=== PATIENT | male | born 1970 | race Caucasian/White ===

== ENCOUNTER 2016-12-06 05:08 | Emergency (ER) | payer MEDICARE, OTHER ==
[2016-12-06] MEDS ORDERED: ACETAMINOPHEN TAB 500 MG TAB PO STA (05:12)
[2016-12-06] MEDS ORDERED: IBUPROFEN 600 MG TAB PO STA (05:13)
--- NOTE | 2016-12-06 05:14 | ED ---
General Adult HPI - General Stated complaint: fever Time Seen by Provider: 12/06/16 05:08 Source: RN notes reviewed - History of Present Illness Initial comments: This is a 46-year-old male who presents emergency Department complaining of having a cough last couple of days and feeling a little bit lightheaded as of tonight. Patient states he feels extremely hot but he has not taken his temperature. Patient denies any sputum production. Patient states he was a little short of breath earlier but no longer. Patient denies chest pain or palpitations. Patient denies any abdominal pain patient denies nausea vomiting diarrhea. Patient denies any headache patient denies numbness weakness. Patient denies any near syncopal episodes though he does feel occasionally dizzy. Patient has not taken anything for his fever. Denies any smoking. - Related Data Home Medications Medication Instructions Recorded Confirmed OLANZapine [ZyPREXA] 20 mg PO DAILY 04/12/16 12/06/16 Paliperidone IM [Invega Sustenna] 156 mg IM DIRECTED 04/12/16 12/06/16 Previous Rx's Medication Instructions Recorded Oseltamivir [Tamiflu] 75 mg PO Q12HR #10 cap 12/06/16 Allergies Allergy/AdvReac Type Severity Reaction Status Date / Time yeast, dried Allergy Unknown Verified 12/06/16 05:18 Review of Systems ROS Statement: Those systems with pertinent positive or pertinent negative responses have been documented in the HPI. ROS Other: All systems not noted in ROS Statement are negative. Past Medical History Past Medical History: No Reported History History of Any Multi-Drug Resistant Organisms: None Reported Additional Past Surgical History / Comment(s): ORAL SURGERY Past Psychological History: Schizoaffective Disorder, Schizophrenia Smoking Status: Never smoker Past Alcohol Use History: None Reported Past Drug Use History: None Reported General Exam - General Exam Comments Initial Comments: GENERAL: Patient is well-developed and well-nourished. Patient is nontoxic and well- hydrated and is in mild distress. ENT: Neck is soft and supple. No significant lymphadenopathy is noted. Oropharynx is clear. Moist mucous membranes. Neck has full range of motion without eliciting any pain. EYES: The sclera were anicteric and conjunctiva were pink and moist. Extraocular movements were intact and pupils were equal round and reactive to light. Eyelids were unremarkable. PULMONARY: Unlabored respirations. Good breath sounds bilaterally. No audible rales rhonchi or wheezing was noted. CARDIOVASCULAR: There is a regular rate and rhythm without any murmurs gallops or rubs. ABDOMEN: Soft and nontender with normal bowel sounds. No palpable organomegaly was noted. There is no palpable pulsatile mass. SKIN: Skin is clear with no lesions or rashes and otherwise unremarkable. NEUROLOGIC: Patient is alert and oriented x3. Cranial nerves II through XII are grossly intact. Motor and sensory are also intact. Normal speech, volume and content. Symmetrical smile. MUSCULOSKELETAL: Normal extremities with adequate strength and full range of motion. No lower extremity swelling or edema. No calf tenderness. LYMPHATICS: No significant lymphadenopathy is noted PSYCHIATRIC: Normal psychiatric evaluation. Normal interpersonal interactions appears functionally intact in deals appropriately with others. No signs of depression. No signs of anxiety. Course Vital Signs 12/06/16 05:16 Temperature 101.6 F H Pulse Rate 108 H Respiratory 20 Rate Blood Pressure 114/63 O2 Sat by Pulse 98 Oximetry Medical Decision Making - Medical Decision Making Chest x-ray shows no acute abnormality. Patient is influenza B+. - Lab Data Lab Results 12/06/16 Range/Units 05:14 Influenza Type A RNA Not Detected (Not Detectd) Influenza Type B (PCR) Detected H (Not Detectd) Disposition Clinical Impression: Influenza Disposition: HOME SELF-CARE Instructions: Influenza (ED) Prescriptions: Oseltamivir [Tamiflu] 75 mg PO Q12HR #10 cap Referrals: Beni Fermin MD [Primary Care Provider] - 1-2 days Time of Disposition: 05:50
--- NOTE | 2016-12-06 05:44 | XR ---
EXAM: XR Chest, 2 Views. CLINICAL HISTORY: Difficulty breathing TECHNIQUE: Frontal and lateral views of the chest. COMPARISON: No relevant prior studies available. FINDINGS: Lungs: Unremarkable. No consolidation. Pleural space: Unremarkable. No pneumothorax. Heart: Unremarkable. No cardiomegaly. Mediastinum: Unremarkable. Bones/joints: Unremarkable. IMPRESSION: Normal chest x-rays.
[2016-12-06] MEDS ORDERED: OSELTAMIVIR 75 MG CAP PO STA (05:51)
[2016-12-06 06:02] VITALS: BP 116/80; PULSE 80; RESP 16; TEMP 97.9
== END 2016-12-06 06:00 | disposition home or self-care (01) ==
LOC: SUPCPDRO 05:08 → EC 05:08
DX: J11.1 Influenza due to unidentified influenza virus with other respiratory manifestations (principal); F25.9 Schizoaffective disorder, unspecified; Z79.899 Other long term (current) drug therapy; Z91.018 Allergy to other foods
CPT/HCPCS: 71020; 87502; 99284

== ENCOUNTER 2020-06-29 13:43 | Inpatient (IN) | payer MEDICARE, MEDICAID ==
--- NOTE | 2020-06-29 14:32 | ED ---
Psych HPI - General Source: patient, EMS Mode of arrival: EMS <Celi Dunn - Last Filed: 06/29/20 14:18> <Betsy Van - Last Filed: 07/05/20 12:14> - General Chief Complaint: Psychiatric Symptoms Stated Complaint: MENTAL HEALTH - History of Present Illness Initial Comments: 49-year-old male presenting today for chief complaint of brought in by EMS. Patient states he was just walking around going to place that he did not want to disclose with the police and EMS was called to bring him to the emergency Department patient states he has not been taking his medications because he states he feels the same on them and off them and doesn't see the point in t aking them. Patient states that he has no current complaints he feels fine and would like to go home remaining review of systems negative Patient is talking during history about evident how he states he can no insulin was [facility] he is referred himself as we and has bizamzamare thought s. (Celi Dunn) - Related Data Home Medications Medication Instructions Recorded Confirmed OLANZapine [ZyPREXA] 20 mg PO HS 04/12/16 06/29/20 Cholecalciferol [Vitamin D3 (25 5,000 unit PO DAILY 06/29/20 06/29/20 Mcg = 1000 Iu)] fluPHENAZine decanoate [Prolixin 25 mg IM Q14D 06/29/20 06/29/20 Decanoate] Allergies Allergy/AdvReac Type Severity Reaction Status Date / Time yeast, dried Allergy Unknown Verified 06/29/20 17:26 Review of Systems ROS Other: All systems not noted in ROS Statement are negative. <Celi Dunn - Last Filed: 06/29/20 14:18> ROS Other: All systems not noted in ROS Statement are negative. <Betsy Van - Last Filed: 07/05/20 12:14> ROS Statement: Those systems with pertinent positive or pertinent negative responses have been documented in the HPI. Past Medical History Past Medical History: No Reported History History of Any Multi-Drug Resistant Organisms: None Reported Past Surgical History: No Surgical Hx Reported Additional Past Surgical History / Comment(s): ORAL SURGERY Past Psychological History: Schizoaffective Disorder, Schizophrenia Smoking Status: Unknown if ever smoked Past Alcohol Use History: None Reported Past Drug Use History: None Reported <Celi Dunn - Last Filed: 06/29/20 14:18> General Exam Limitations: altered mental status <Celi Dunn - Last Filed: 06/29/20 14:18> - General Exam Comments Initial Comments: General: The patient is awake and alert, in no distress Eye: Pupils are equal, round and reactive to light, extra-ocular movements are intact. No nystagmus. There is normal conjunctiva bilaterally. No signs of icterus. Ears, nose, mouth and throat: There are moist mucous membranes and no oral lesions. Neck: The neck is supple, there is no tenderness or JVD. Cardiovascular: There is a regular rate and rhythm. No murmur, rub or gallop is appreciated. Respiratory: Lungs are clear to auscultation, respirations are non-labored, breath sounds are equal. No wheezes, stridor, rales, or rhonchi. Gastrointestinal: Soft, non-distended, non-tender abdomen without masses or o rganomegaly noted. There is no rebound or guarding present. Musculoskeletal: Normal ROM, no tenderness. Strength 5/5. Sensation intact. Radial pulses equal bilaterally 2+. Neurological: A&O x 3. CN II-XII intact, There are no obvious motor or sensory deficits. Coordination appears grossly intact. Speech is normal. Skin: Skin is warm and dry and no rashes or lesions are noted. Dirt on feet b/l Psychiatric: Cooperative (Celi Dunn) Course Vital Signs 06/29/20 06/29/20 06/29/20 13:47 13:52 14:52 Temperature 98.4 F Pulse Rate 122 H Respiratory 20 20 20 Rate Blood Pressure 135/91 O2 Sat by Pulse 97 Oximetry 06/29/20 06/29/20 15:52 16:00 Temperature Pulse Rate Respiratory 20 20 Rate Blood Pressure O2 Sat by Pulse Oximetry Medical Decision Making <Celi Dunn - Last Filed: 06/29/20 14:18> - Lab Data Result diagrams: 06/30/20 06:54 06/30/20 06:54 <Betsy Van - Last Filed: 07/05/20 12:14> - Medical Decision Making No complaiunts. non-complaint with medications. found walking barefoot. Patient has bizzare thoughts. Patient medically cleared for EPS evaluation, who recommended admission. pt petitioned and admitted after certification. (Celi Dunn) I was available for consultation in the emergency department. The history and physical exam were done by the midlevel provider. I was consulted for this patients care. I reviewed the case with the midlevel provider and based on their presentation of the patient, I agree with the assessment, medical decision making and plan of care as documented. Chart was dictated using [facility] dictation software. Attempts were made to correct any dictation errors however some typographical errors may persist. [facility]id-19 pandemic. (Betsy Van) - Lab Data Lab Results 06/29/20 06/29/20 Range/Units 14:59 14:59 Urine Color Yellow Urine Appearance Cloudy (Clear) Urine pH 6.0 (5.0-8.0) Ur Specific [place] 1.034 (1.001-1.035) Urine Protein 1+ H (Negative) Urine Glucose (UA) Negative (Negative) Urine Ketones 1+ H (Negative) Urine Blood Small H (Negative) Urine Nitrite Negative (Negative) Urine Bilirubin Negative (Negative) Urine Urobilinogen 2.0 (<2.0) mg/dL Ur Leukocyte Esterase Negative (Negative) Urine RBC 93 H (0-5) /hpf Urine WBC 2 (0-5) /hpf Urine Mucus Many H (None) /hpf Urine Opiates Screen Not Detected (NotDetected) Ur Oxycodone Screen Not Detected (NotDetected) Urine Methadone Screen Not Detected (NotDetected) Ur Propoxyphene Screen Not Detected (NotDetected) Ur Barbiturates Screen Not Detected (NotDetected) U Tricyclic Antidepress Not Detected (NotDetected) Ur Phencyclidine Scrn Not Detected (NotDetected) Ur Amphetamines Screen Not Detected (NotDetected) U Methamphetamines Scrn Not Detected (NotDetected) U Benzodiazepines Scrn Not Detected (NotDetected) Urine Cocaine Screen Not Detected (NotDetected) U Marijuana (THC) Screen Not Detected (NotDetected) Disposition Is patient prescribed a controlled substance at d/c from ED?: No Time of Disposition: 15:31 - Out of Hospital Transfer - Req. Specs Out of Hospital Transfer - Requested Specifics: Psychiatric Non-ICU <Celi Dunn - Last Filed: 06/29/20 14:18> <Betsy Van - Last Filed: 07/05/20 12:14> Clinical Impression: Schizophrenia, Acute psychosis, Nonadherence to medication Disposition: TRANSFER TO PSYCH HOSP/UNIT Condition: Stable
[2020-06-29 15:52] LABS: Appearance,Urine Cloudy (Clear); Bilirubin,Urine Negative (Negative); Blood,Urine Small (Negative); Color,Urine Yellow; Glucose,Urine (UA) Negative (Negative); Ketones,Urine 1+ (Negative); Leukocyte Esterase,Urine Negative (Negative); Mucus,Urine Many /hpf; Nitrite,Urine Negative (Negative); Protein,Urine 1+ (Negative); RBC,Urine 93 /hpf (0-5); Specific Gravity,Urine 1.034 (1.001-1.035); WBC,Urine 2 /hpf (0-5)
[2020-06-29 15:53] LABS: Amphetamine Screen,Urine Not Detected (NotDetected); Barbiturate Screen,Urine Not Detected (NotDetected); Benzodiazepines Screen,Urine Not Detected (NotDetected); Cocaine Screen,Urine Not Detected (NotDetected); Methadone Screen, Urine Not Detected (NotDetected); Opiate Screen,Urine Not Detected (NotDetected); Oxycodone Screen, Urine Not Detected (NotDetected); Phencyclidine Screen,Urine Not Detected (NotDetected); Tricyclic Antidepressant,Urine Not Detected (NotDetected); Urn Cannabinoid Scrn Not Detected (NotDetected)
[2020-06-29] MEDS ORDERED: ACETAMINOPHEN TAB 325 MG TAB PO PRN (16:05)
[2020-06-29] MEDS ORDERED: MAGNESIUM HYDROXIDE 2,400 MG/10 ML CUP PO PRN (16:05)
[2020-06-29] MEDS ORDERED: MAG HYDROX/AL HYDROX/SIMETH 30 ML CUP PO PRN (16:05)
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
[2020-06-29] MEDS: OLANZapine 5 MG TAB PO SCH (20:58)
[2020-06-29] MEDS ORDERED: PALIPERIDONE 3 MG TAB.ER.24 PO SCH (21:00)
[2020-06-30] MEDS: ZIPRASIDONE 20 MG VIAL IM PRN (00:28)
[2020-06-30] MEDS: LORazepam 1 MG TAB PO PRN (04:55)
[2020-06-30 07:32] LABS: Basophils % (A) 1 %; Eosinophils # (A) 0.1 k/uL (0-0.7); Eosinophils % (A) 2 %; HCT 42.2 % (39.0-53.0); HGB 14.1 gm/dL (13.0-17.5); Lymphocytes # (A) 0.8 k/uL (1.0-4.8); Lymphocytes % (A) 11 %; MCH 29.3 pg (25.0-35.0); MCHC 33.4 g/dL (31.0-37.0); MCV 87.8 fL (80.0-100.0); Mean Platelet Volume 6.8; Monocytes # (A) 0.6 k/uL (0-1.0); Monocytes % (A) 8 %; Neutrophils # (A) 5.4 k/uL (1.3-7.7); Neutrophils % (A) 76 %; Platelet Count 176 k/uL (150-450); RDW 12.7 % (11.5-15.5); WBC 7.1 k/uL (3.8-10.6)
[2020-06-30 07:44] LABS: ALT 27 U/L (4-49); AST 55 U/L (17-59); African American GFR (CKD) >90 (>60 ml/min/1.73 sqM); Albumin 4.1 g/dL (3.5-5.0); Alkaline Phosphatase 63 U/L (38-126); Anion Gap 6 mmol/L; Blood Urea Nitrogen 27 mg/dL (9-20); Calcium 8.9 mg/dL (8.4-10.2); Carbon Dioxide 28 mmol/L (22-30); Chloride 107 mmol/L (98-107); Cholesterol 178 mg/dL (<200); Glucose 118 mg/dL (74-99); HDL Cholesterol 66 mg/dL (40-60); LDL Cholesterol,Calculated 94 mg/dL (0-99); Non-African American GFR(CKD) 90 (>60 ml/min/1.73 sqM); Potassium 3.8 mmol/L (3.5-5.1); Sodium 141 mmol/L (137-145); Total Bilirubin 0.6 mg/dL (0.2-1.3); Total Protein 6.6 g/dL (6.3-8.2); Triglycerides 91 mg/dL (<150)
--- NOTE | 2020-06-30 11:42 | P.HP ---
Psychiatric H&P - . H&P Date: 06/30/20 History & Physical: Allergies Allergy/AdvReac Type Severity Reaction Status Date / Time yeast, dried Allergy Unknown Verified 06/29/20 17:26 Vital Signs Temp 98.6 F 06/30/20 05:35 Pulse 114 H 06/30/20 05:35 Resp 16 06/30/20 05:35 BP 122/82 06/30/20 05:35 Pulse Ox 99 06/29/20 16:52 Intake & Output 06/29/20 06/30/20 06/30/20 18:59 06:59 18:59 Weight 78.471 kg Laboratory Last Values WBC 7.1 k/uL (3.8-10.6) 06/30/20 06:54 RBC 4.80 m/uL (4.30-5.90) 06/30/20 06:54 Hgb 14.1 gm/dL (13.0-17.5) 06/30/20 06:54 Hct 42.2 % (39.0-53.0) 06/30/20 06:54 MCV 87.8 fL (80.0-100.0) 06/30/20 06:54 MCH 29.3 pg (25.0-35.0) 06/30/20 06:54 MCHC 33.4 g/dL (31.0-37.0) 06/30/20 06:54 RDW 12.7 % (11.5-15.5) 06/30/20 06:54 Plt Count 176 k/uL (150-450) 06/30/20 06:54 Neutrophils % 76 % 06/30/20 06:54 Lymphocytes % 11 % 06/30/20 06:54 Monocytes % 8 % 06/30/20 06:54 Eosinophils % 2 % 06/30/20 06:54 Basophils % 1 % 06/30/20 06:54 Neutrophils # 5.4 k/uL (1.3-7.7) 06/30/20 06:54 Lymphocytes # 0.8 k/uL (1.0-4.8) L 06/30/20 06:54 Monocytes # 0.6 k/uL (0-1.0) 06/30/20 06:54 Eosinophils # 0.1 k/uL (0-0.7) 06/30/20 06:54 Basophils # 0.0 k/uL (0-0.2) 06/30/20 06:54 Sodium 141 mmol/L (137-145) 06/30/20 06:54 Potassium 3.8 mmol/L (3.5-5.1) 06/30/20 06:54 Chloride 107 mmol/L (98-107) 06/30/20 06:54 Carbon Dioxide 28 mmol/L (22-30) 06/30/20 06:54 Anion Gap 6 mmol/L 06/30/20 06:54 BUN 27 mg/dL (9-20) H 06/30/20 06:54 Creatinine 0.99 mg/dL (0.66-1.25) 06/30/20 06:54 Est GFR (CKD-EPI)AfAm >90 (>60 ml/min/1.73 sqM) 06/30/20 06:54 Est GFR (CKD-EPI)NonAf 90 (>60 ml/min/1.73 sqM) 06/30/20 06:54 Glucose 118 mg/dL (74-99) H 06/30/20 06:54 Calcium 8.9 mg/dL (8.4-10.2) 06/30/20 06:54 Total Bilirubin 0.6 mg/dL (0.2-1.3) 06/30/20 06:54 AST 55 U/L (17-59) 06/30/20 06:54 ALT 27 U/L (4-49) 06/30/20 06:54 Alkaline Phosphatase 63 U/L (38-126) 06/30/20 06:54 Total Protein 6.6 g/dL (6.3-8.2) 06/30/20 06:54 Albumin 4.1 g/dL (3.5-5.0) 06/30/20 06:54 Triglycerides 91 mg/dL (<150) 06/30/20 06:54 Cholesterol 178 mg/dL (<200) 06/30/20 06:54 LDL Cholesterol, Calc 94 mg/dL (0-99) 06/30/20 06:54 HDL Cholesterol 66 mg/dL (40-60) H 06/30/20 06:54 TSH 2.810 mIU/L (0.465-4.680) 06/30/20 06:54 Urine Color Yellow 06/29/20 14:59 Urine Appearance Cloudy (Clear) 06/29/20 14:59 Urine pH 6.0 (5.0-8.0) 06/29/20 14:59 Ur Specific [place] 1.034 (1.001-1.035) 06/29/20 14:59 Urine Protein 1+ (Negative) H 06/29/20 14:59 Urine Glucose (UA) Negative (Negative) 06/29/20 14:59 Urine Ketones 1+ (Negative) H 06/29/20 14:59 Urine Blood Small (Negative) H 06/29/20 14:59 Urine Nitrite Negative (Negative) 06/29/20 14:59 Urine Bilirubin Negative (Negative) 06/29/20 14:59 Urine Urobilinogen 2.0 mg/dL (<2.0) 06/29/20 14:59 Ur Leukocyte Esterase Negative (Negative) 06/29/20 14:59 Urine RBC 93 /hpf (0-5) H 06/29/20 14:59 Urine WBC 2 /hpf (0-5) 06/29/20 14:59 Urine Mucus Many /hpf (None) H 06/29/20 14:59 Urine Opiates Screen Not Detected (NotDetected) 06/29/20 14:59 Ur Oxycodone Screen Not Detected (NotDetected) 06/29/20 14:59 Urine Methadone Screen Not Detected (NotDetected) 06/29/20 14:59 Ur Propoxyphene Screen Not Detected (NotDetected) 06/29/20 14:59 Ur Barbiturates Screen Not Detected (NotDetected) 06/29/20 14:59 U Tricyclic Antidepress Not Detected (NotDetected) 06/29/20 14:59 Ur Phencyclidine Scrn Not Detected (NotDetected) 06/29/20 14:59 Ur Amphetamines Screen Not Detected (NotDetected) 06/29/20 14:59 U Methamphetamines Scrn Not Detected (NotDetected) 06/29/20 14:59 U Benzodiazepines Scrn Not Detected (NotDetected) 06/29/20 14:59 Urine Cocaine Screen Not Detected (NotDetected) 06/29/20 14:59 U Marijuana (THC) Screen Not Detected (NotDetected) 06/29/20 14:59 06/30/20 11:33 IDENTIFYING DATA: Patient is a 49-year-old male was admitted for psychosis. HPI: Patient presented to the hospital on 06/29/2020 brought in by EMS. Patient was found walking and wandering by police and refused to disclose where he was going to. Currently the patient is endorsing significant symptoms of psychosis. He reports auditory and visual hallucinations. In regards auditory hallucinations, he states that he hears multiple conversations per day. He states he hears the voices of people he has met. He denies any command type or persecutory hallucinations. He endorses visual hallucinations. He states he sees spirits all the time and "they help me with my magic." He also reports that the spirits help him to read minds. She further endorses other delusional thoughts including paranoia towards his father and is expressing a desire to find a place to live for his father cannot find him. He also reports that he believes he is and has no pulse. He states that he has not been in ad herent with his medications. He reports that he is taking Zyprexa and has a Prolixin IM that he is supposed to receive her [facility]. He reports that he has not been taking his medications in over one month. He reports intermittent taking Zyprexa to help him sleep. In regards to mood disorder, he is not endorsing any significant symptoms of depression today. He denies any suicidal or homicidal ideations, intentions, and/or plans. He denies any prior attempts at suicide. He does report going 4-5 days without any sleep but denies any history of impulsivity, grandiosity, or increased goal-directed behavior. In regards to substance use, patient denies any tobacco, alcohol, marijuana, or any other illicit drug use. PAST PSYCHIATRIC HISTORY: Patient states that he is diagnosed with schizophre juliann. He reports prior trials with Zyprexa and Prolixin which she receives through [facility]. Reports multiple psychiatric hospitalizations but is unable to recall where last. Patient denies any history of suicide attempts in the past. PMH:denies ALLERGIES: as per EMR CHEMICAL DEPENDENCY HISTORY: as per HPI FAMILY PSYCHIATRIC/SUBSTANCE USE HISTORY: denies SOCIAL HISTORY: Patient was born and raised in [place], [place]. He reports no source of income. He has attended 2 years of college. He has his own apartment where he lives with a "Steven Cao" who is his roommate/friend. MENTAL STATUS EXAM: General Appearance: Patient appears to be stated age is alert, directable, and attempts to cooperate. Patient appears to have fair hygiene and grooming. Slightly disheveled. Behavior: Patient is seated without any agitated behavior. Patient has been noted to be wandering the halls singing. Speech: Patient's speech is fluent and nonpressured. Mood/Affect: Patient reports their mood is OK, affect is congruent and blunted. Suicidality/Homicidality: Patient denies having any homicidal ideation intent or plan. Denies any suicidal ideations intent or plan Perceptions: Patient endorses both auditory and visual hallucinations. Though content/process: Magical thinking, paranoid delusions, and other bizarre delusions. Memory and concentration: AOX3, grossly intact for the purposes of this session. Can spell "WORLD" backwards Judgment and insight: poor STRENGTHS/WEAKNESSES: strength is that patient has housing and is known to [facility]. Weakness is that patient is nonadherent with his medications and is lacking insight. INTELLECT: average IMPRESSIONS: Schizophrenia Rule out schizoaffective disorder, bipolar type PLAN: -Patient is admitted under involuntary status to MHU for stabilization of psychiatric symptoms and safety. Patient signed adult voluntary form and medication consent and is placed in patient's chart. A second certification was completed and along with petition will be filed for court. -Medications : Will start patient on His home medication of Zyprexa 5 mg at bedtime Start Invega 3 mg by mouth twice a day with plans to transition the patient to Invega Sustenna due to history of nonadherence with medication. -Ativan and Geodon PRN for agitation/aggression -Patient was informed of the risks, benefits and side effects of the medication and patient verbally consented to taking the medications. Patient signed med consent form and was placed in chart. -Internal Medicine consult to perform medical evaluation and physical. - on board for discharge planning. Encourage patient to participate in groups to work on coping skills. 06/30/20 11:40
[2020-06-30 13:16] LABS: Hemoglobin A1C 5.5 % (4.0-6.0)
[2020-06-30] MEDS: OLANZapine 5 MG TAB PO SCH (20:23)
[2020-06-30] MEDS: PALIPERIDONE 3 MG TAB.ER.24 PO SCH (20:23)
[2020-07-01] MEDS: PALIPERIDONE 3 MG TAB.ER.24 PO SCH (09:25)
--- NOTE | 2020-07-01 10:13 | P.PN ---
Progress Note - Text Progress Note Date: 07/01/20 Interval History: Patient was seen attending group and was directable and agreeable to speak with creative services writer in the office. Patient continues to endorse auditory and visual hallucinations. He states that this has been unchanged whether he has been on medications or off medications. He reports that they continue to be present. He also endorses delusions. He continues to believe that he is . He states that he is now in love with a peer on the unit. He reports that he will not act on it at this time. At this time patient denies any suicidal or homicidal ideations, intent or plan. Patient denies any side effects from the medications and has been compliant with meds. Mental Status Exam: General Appearance: Patient appears to be stated age is alert, directable, and cooperative. Behavior: Patient is calmly seated without any agitated behavior. Speech: Patient's speech is fluent and nonpressured. Mood/Affect: Mood is improving mildly, affect is congruent and blunted. Suicidality/Homicidality: Patient denies having any suicidal or homicidal ideation intent or plan. Perceptions: Patient endorses both auditory and visual hallucinations. Though content/process: Delusional thought content is evident. Memory and concentration: AOX3, grossly intact for the purposes of this session Judgment and insight: Improving mildly Assessment Schizophrenia Plan: -Patient continues to meet criteria for inpatient psychiatric admission for symptom stabilization and safety. Patient has been petitioned and certified. Patient is on a court order currently. -Medications: Increase Invega to 3 mg by mouth daily and 4.5 mg by mouth at bedtime Continue Zyprexa 5 mg at bedtime We will obtain [facility] records today determine his home medication regimen. -When necessary Ativan and Geodon for agitation/aggression. -SW on board for discharge planning. Encouraged the patient to participate in milieu.
[2020-07-01] MEDS ORDERED: OLANZapine 10 MG TAB PO SCH (21:00)
[2020-07-02] MEDS: LORazepam 1 MG TAB PO PRN (01:07)
[2020-07-02] MEDS: ZIPRASIDONE 20 MG VIAL IM PRN (01:07)
[2020-07-02] MEDS ORDERED: OLANZapine 10 MG VIAL IM PRN (10:18)
--- NOTE | 2020-07-02 10:18 | P.PN ---
Progress Note - Text Progress Note Date: 07/02/20 Interval History: Patient was seen attending group and was directable and agreeable to speak with creative services writer in the office. Morgan is reporting he is feeling "good." He is not reporting any significant symptoms of depression or moira. At this time patient denies any suicidal or homicidal ideations, intent or plan. In regards to psychotic symptoms, he appears to be less preoccupied with internal stimuli. He does continue to endorse auditory and visual hallucinations but reports that when he is in group or talking to people, he is better able to ignore his hallucinations. He is not reporting any significant symptoms of delusions today. Patient denies any side effects from the medications and has been compliant with meds. Mental Status Exam: General Appearance: Patient appears to be stated age is alert, directable, and cooperative. Well groomed, wearing his tortoise-shell glasses. Behavior: Patient is calmly seated without any agitated behavior. Speech: Patient's speech is fluent and nonpressured. Mood/Affect: Mood is improving mildly, affect is congruent and constricted. Suicidality/Homicidality: Patient denies having any suicidal or homicidal ideation intent or plan. Perceptions: Patient endorses both auditory and visual hallucinations. Though content/process: There is no evidence of any delusional thought content and thought process is linear and goal-directed. Memory and concentration: AOX3, grossly intact for the purposes of this session Judgment and insight: Improving mildly Assessment Schizophrenia Plan: -Patient continues to meet criteria for inpatient psychiatric admission for symptom stabilization and safety. Patient is currently on a court-order. -Medications: Patient's Prolixin 25 mg IM is scheduled to be received on 07-10-2020. We will increase zyprexa to 15 mg po HS with plants to return to his normal home dose. Discussed at length the importance of medication adherence. -When necessary Ativan and Geodon for agitation/aggression. -SW on board for discharge planning. Encouraged the patient to participate in milieu. []
[2020-07-02] MEDS ORDERED: OLANZapine 5 MG TAB PO SCH (21:00)
--- NOTE | 2020-07-03 09:11 | P.PN ---
Progress Note - Text Progress Note Date: 07/03/20 Interval History: Patient was seen getting up from bed and was directable and agreeable to speak with advertising copy writer in the office. Patient reports he feels the same as he did yesterday. He is not endorsing any significant symptoms of depression, anxiety or moira. He reports he just feels "tired." He continues to endorse auditory and visual hallucinations that he states have not changed. He is not endorsing any delusions at this time. He is less forthcoming with his psychotic features. He acknowledges he has been sexually inappropriate and was directed to avoid such behavior. He is agreeable with this. Patient denies any side effects from the medications and has been compliant with meds. Mental Status Exam: General Appearance: Patient appears to be stated age is alert, directable, and cooperative. Behavior: Patient is calmly seated without any agitated behavior. Speech: Patient's speech is fluent and nonpressured. Mood/Affect: Mood is "fine," affect is congruent and blunted but otherwise euthymic. Suicidality/Homicidality: Patient denies having any suicidal or homicidal ideation intent or plan. Perceptions: Patient endorses both auditory and visual hallucinations. Though content/process: Denies any delusions currently. Memory and concentration: AOX3, grossly intact for the purposes of this session Judgment and insight: Improving mildly Assessment Schizophrenia Plan: -Patient continues to meet criteria for inpatient psychiatric admission for symptom stabilization and safety. Patient is currently on a court-order. -Medications: Patient's Prolixin 25 mg IM is scheduled to be received on 07-10-2020. We will increase zyprexa to 20 mg po HS. Discussed at length the importance of medication adherence. -When necessary Ativan and Geodon for agitation/aggression. -SW on board for discharge planning. Encouraged the patient to participate in milieu.
[2020-07-03] MEDS: OLANZapine 10 MG TAB PO SCH (20:40)
--- NOTE | 2020-07-04 10:45 | P.PN ---
Progress Note - Text Progress Note Date: 07/04/20 Interval History: Patient was seen attending groups and was directable and agreeable to speak with abstract writer in the office. Patient reports that he feels "okay." He continues to endorse auditory and visual hallucinations. He states that these auditory hallucinations to command him to do things but have not been telling him to do anything in particular other than asked questions to those around him. He states that despite being on medications for nature of his hallucinations have not changed. In regards to his relationship with his father, the patient does express that he does not get along with his father but is denying any homicidal ideation or intention at this time. He denies any suicidal ideation or intention or plan. He does continue to endorse some delusional thoughts and feels like that he is in love with people on the unit.he has been adherent with his medications and denies any side effects. Mental Status Exam: General Appearance: Patient appears to be stated age is alert, directable, and cooperative. Behavior: Patient is calmly seated without any agitated behavior. Speech: Patient's speech is fluent and nonpressured. Mood/Affect: Mood is improving mildly, affect is congruent and blunted. Suicidality/Homicidality: Patient denies having any suicidal or homicidal ideation intent or plan. Perceptions: Patient endorses both auditory and visual hallucinations. Though content/process: Patient does endorse delusional thought processes. Ero tomanic. Memory and concentration: AOX3, grossly intact for the purposes of this session Judgment and insight: Poor Assessment Schizophrenia Plan: -Patient continues to meet criteria for inpatient psychiatric admission for symptom stabilization and safety. Patient is currently on a court order. -Medications: Patient's Prolixin 25 mg IM is scheduled to be received on 07-10-2020. Increase Zyprexa to 5 mg by mouth every morning and 20 mg by mouth daily at bedtime to address psychotic symptoms. -When necessary Ativan and Geodon for agitation/aggression. -SW on board for discharge planning. Encouraged the patient to participate in milieu.
[2020-07-04] MEDS: OLANZapine 5 MG TAB PO SCH (11:02)
[2020-07-04] MEDS: OLANZapine 10 MG TAB PO SCH (20:06)
[2020-07-05] MEDS: OLANZapine 5 MG TAB PO SCH (08:03)
--- NOTE | 2020-07-05 09:49 | P.PN ---
Progress Note - Text Progress Note Date: 07/05/20 Interval History: Patient was seen attending group and was directable and agreeable to speak with feature writer in the office. Patient continues to endorse auditory and visual hallucinations that are constantly present. He reports that this has not changed even with or without medications. He is not endorsing any suicidal or homicidal ideations, intentions, and/or plan. He does endorse significant paranoia. He reports that he is paranoid of his father. He states that his f ather usually gets in a "Anti-Navneet" mood and has also purchased a firearm. Patient expresses some concern for his own safety. Mental Status Exam: General Appearance: Patient appears to be stated age is alert, directable, and cooperative. Behavior: Patient is calmly seated without any agitated behavior. Speech: Patient's speech is fluent and nonpressured. Mood/Affect: Mood is improving mildly, affect is congruent and constricted. Suicidality/Homicidality: Patient denies having any suicidal or homicidal ideation intent or plan. Perceptions: He continues to endorse both auditory and visual hallucinations. Though content/process: He does endorse delusional thought processes. Paranoia evident. Memory and concentration: AOX3, grossly intact for the purposes of this session Judgment and insight: Poor Assessment Schizophrenia Plan: -Patient continues to meet criteria for inpatient psychiatric admission for symptom stabilization and safety. Patient is currently on a court order. -Medications: Patient's Prolixin 25 mg IM is scheduled to be received on 07-10-2020. Increase Zyprexa to 10 mg by mouth every morning and 20 mg by mouth daily at bedtime to address psychotic symptoms. May consider transition to Clozaril. -When necessary Ativan and Geodon for agitation/aggression. -SW on board for discharge planning. Encouraged the patient to participate in milieu.
[2020-07-05 14:59] VITALS: BMI 26.9
[2020-07-05] MEDS: OLANZapine 10 MG TAB PO SCH (20:22)
[2020-07-06] MEDS: OLANZapine 5 MG TAB PO SCH (08:19)
[2020-07-06] MEDS: OLANZapine 10 MG TAB PO SCH (20:18)
--- NOTE | 2020-07-06 22:19 | PN ---
PROGRESS NOTE DATE OF SERVICE: 07/06/2020 CHIEF COMPLAINT: The patient was out wandering. He was psychotic and having delusional thoughts. He had paranoia relating to his father. INTERVAL HISTORY: Patient has been doing fair. He had a quiet day yesterday he comes out on the unit. He wonders about. He will interact with others. He attended groups yesterday and seemed to be an active participant. He slept well last night. Today he has been up. He again has been out. He has been to all of the groups today. When I reviewed the history and what was documented, the patient agreed with everything. He acknowledges that he has auditory and visual hallucinations. He notes that he has paranoid thinking towards his father. I did not ask for details about that. He acknowledges that sometimes he has thoughts that may be somewhat disconnected from things around him. He said he has had these issues going back to age 18 and that he has not seen any change in his condition at all in spite of any number of medications that he has been on at one point or another. He has been cooperative with care. He tolerates his psychotropic medications. MENTAL STATUS: Patient sat with a little restlessness. He gave fairly good eye contact. He answered questions appropriately. His thoughts were clear and coherent. He was not too spontaneous, so he was somewhat interactive. His affect was a little constricted though he had a pleasant friendly manner. His mood was reserved though not clearly down or depressed. He did smile some during the interview. There was no outward evidence of him responding to internal stimuli. He voiced no thoughts of harm. He was oriented and alert. ASSESSMENT: I will continue the current diagnosis and treatment plan. We will continue to make efforts to engage the patient in individual and group therapeutic activities. I will continue psychotropic medications the same, namely Zyprexa 7.5 mg in the morning, 20 mg at bedtime. I reviewed medication issues with the patient. I discussed the indication for Zyprexa. I discussed potential side effects including metabolic concerns. I reviewed issues related to movement disorder including tardive dyskinesia. I did raise the question of a trial of Clozaril given that he has not shown the benefit by his report of other antipsychotics. I reviewed issues of Clozaril having specific indication for treatment resistant schizophrenia. We will focus on stabilization and discharge planning. MMODL / IJN: [id number] /
[2020-07-07] MEDS: OLANZapine 5 MG TAB PO SCH (08:11)
--- NOTE | 2020-07-07 13:48 | PN ---
PROGRESS NOTE DATE OF SERVICE: 07/07/2020 CHIEF COMPLAINT: The patient was out wandering. He was psychotic and having delusional thoughts. He had paranoia relating to his father. INTERVAL HISTORY: Patient has been doing fair overall. He is at the same point he seems to have been at over the last several days. He had a quiet day yesterday, comes on the day area. He wanders about. Sometimes he will have some conversations with others. He tends to have a somewhat reserved manner. He attended groups yesterday. He slept fairly well last night. Today he has been up. Overall, there are not significant changes. He was in group today. He denied any problems or concerns relating to his psychotropic medications. He has been appropriate in his interactions with staff and peers. He has been cooperative with care. Tolerates his psychotropic medications. MENTAL STATUS: Patient gave fair eye contact at best. Psychomotor activity was a little restless. He answered questions with brief responses. He did not say much. His affect was blunted. He did have a somewhat friendly manner. His mood was reserved but not clearly down or depressed he did not appear to be distressed. It was difficult to assess for thought disorder given the limited amount of communication he had. There was no indication of thoughts of harm. He was oriented and alert. ASSESSMENT: I will continue the current diagnosis and treatment plan. I will continue psychotropic medications the same. I encouraged the patient to connect with staff with any problems or concerns. We will focus on stabilization and discharge planning. ISABELLE / BRANDEN: [id number] /
[2020-07-07] MEDS: OLANZapine 10 MG TAB PO SCH (21:44)
[2020-07-08 06:56] VITALS: RESP 16
[2020-07-08] MEDS: OLANZapine 5 MG TAB PO SCH (08:44)
--- NOTE | 2020-07-08 09:57 | P.PN ---
Progress Note - Text Progress Note Date: 07/08/20 Interval History: Patient was seen wandering the hallways and was directable and agreeable to speak with insurance underwriter sales in the office. Patient continues to endorse auditory and visual hallucinations. He reports that this has not changed since the addition and titration of his medications. He continues to endorse significant paranoia especially directed towards his father. This provider asked him about his relationship with his father as initially it was doing well prior to this admission. The patient reports that he wants nothing to do with his father and would hide from his father refused to be discharged. He expresses that he has significant support from his friends Anjum and Nixon. He denies any homicidal or suicidal ideation, intention, and/or plan. He has been adherent with his medications and endorses sedation as a side effect. Mental Status Exam: General Appearance: Patient appears to be stated age is alert, directable, and cooperative. Behavior: Patient is calmly seated without any agitated behavior. Speech: Patient's speech is fluent and nonpressured. Mood/Affect: Mood is improving mildly, affect is congruent and constricted. Suicidality/Homicidality: Patient denies having any suicidal or homicidal ideation intent or plan. Perceptions: Patient endorses both auditory and visual hallucinations. Though content/process: Paranoia is evident. Memory and concentration: AOX3, grossly intact for the purposes of this session Judgment and insight: Poor Assessment Schizophrenia Plan: -Patient continues to meet criteria for inpatient psychiatric admission for symptom stabilization and safety. Patient has signed adult voluntary form and medication consent and was placed in patient's chart. -Medications: Patient's Prolixin 25 mg IM is scheduled to be received on 07-10-2020. Increase Zyprexa to 10 mg by mouth every morning and 20 mg by mouth daily at bedtime. -When necessary Ativan and Geodon for agitation/aggression. -SW on board for discharge planning. Encouraged the patient to participate in milieu.
[2020-07-08] MEDS: OLANZapine 10 MG TAB PO SCH (21:08)
[2020-07-09] MEDS: OLANZapine 10 MG TAB PO SCH ×2 (08:26→20:34)
--- NOTE | 2020-07-09 09:35 | P.PN ---
Progress Note - Text Progress Note Date: 07/09/20 Interval History: Patient was seen sitting in bed and was directable and agreeable to speak with automotive service writer in the office. Patient continues to endorse significant auditory and visual hallucinations. He reports that his auditory hallucinations have been asking him questions like "who are your friends and who are your enemies?" He also endorses visual hallucinations of werewolves, dragons, and Cherubs. He does continue to endorse paranoia towards his father. He states that his father plans to get a gun and that this is concerning for him. Despite his paranoia, the patient is denying any suicidal or homicidal ideation, intention, and/or plan. He has been adherent with his medications and only endorses sedation as a side effect. Mental Status Exam: General Appearance: Patient appears to be stated age is alert, directable, and cooperative. Behavior: Patient is calmly seated without any agitated behavior. Speech: Patient's speech is fluent and nonpressured. Mood/Affect: Mood is improving mildly, affect is congruent and constricted. Suicidality/Homicidality: Patient denies having any suicidal or homicidal ideation intent or plan. Perceptions: Patient endorses both auditory and visual hallucinations. Though content/process: Paranoia is evident. Memory and concentration: AOX3, grossly intact for the purposes of this session Judgment and insight: Poor Assessment Schizophrenia Plan: -Patient continues to meet criteria for inpatient psychiatric admission for symptom stabilization and safety. Patient is currently on a court order. -Medications: Patient's Prolixin 25 mg IM is scheduled to be received on 07-10-2020. Continue Zyprexa to 10 mg by mouth every morning and 20 mg by mouth daily at bedtime. Will explore initiation of Clozaril tomorrow after discussion with [facility] during team meeting. -When necessary Ativan and Geodon for agitation/aggression. -SW on board for discharge planning. Encouraged the patient to participate in milieu.
[2020-07-09 15:42] LABS: Basophils % (A) 1 %; Eosinophils # (A) 0.1 k/uL (0-0.7); Eosinophils % (A) 2 %; HGB 15.4 gm/dL (13.0-17.5); Lymphocytes # (A) 1.3 k/uL (1.0-4.8); Lymphocytes % (A) 24 %; MCH 28.9 pg (25.0-35.0); MCHC 32.8 g/dL (31.0-37.0); MCV 88.3 fL (80.0-100.0); Mean Platelet Volume 6.7; Monocytes # (A) 0.4 k/uL (0-1.0); Monocytes % (A) 7 %; Neutrophils # (A) 3.5 k/uL (1.3-7.7); Neutrophils % (A) 63 %; Platelet Count 231 k/uL (150-450); RBC 5.33 m/uL (4.30-5.90); RDW 12.5 % (11.5-15.5); WBC 5.5 k/uL (3.8-10.6)
[2020-07-10] MEDS: OLANZapine 10 MG TAB PO SCH ×2 (08:36→20:09)
[2020-07-10] MEDS ORDERED: fluPHENAZine DECANOATE 25 MG/ML 5ML MDV IM ONE (09:13)
--- NOTE | 2020-07-10 09:38 | P.PN ---
Progress Note - Text Progress Note Date: 07/10/20 Interval History: Patient was seen wandering the hallways and was directable and agreeable to speak with commercial real estate underwriter in the office. Patient reports that he feels like he can get along with his father again. He states that he is spoken to family members and that he feels that he can be safe around his father. He expresses that he would not initiate contact with his father but that he is free for his father to contact him. At this time patient denies any suicidal or homicidal ideations, intent or plan. He continues to endorse auditory and visual hallucinations. He is not reporting any significant paranoia today. He continues to endorse sedation as a side effect of his medication. He otherwise denies any EPS, muscle tightness, or chest pain. Mental Status Exam: General Appearance: Patient appears to be stated age is alert, directable, and cooperative. Behavior: Patient is calmly seated without any agitated behavior. Speech: Patient's speech is fluent and nonpressured. Mood/Affect: Mood is "doing okay," affect is congruent and constricted. Suicidality/Homicidality: Patient denies having any suicidal or homicidal ideation intent or plan. Perceptions: Patient endorses both auditory and visual hallucinations. Though content/process: Thought process appears to be linear and logical and short conversation today. Memory and concentration: AOX3, grossly intact for the purposes of this session Judgment and insight: Poor Assessment Schizophrenia Plan: -Patient continues to meet criteria for inpatient psychiatric admission for symptom stabilization and safety. Patient is currently on a court order. -Medications: Prolixin decanoate 25 mg IM to be given today Continue Zyprexa 10 mg by mouth every morning and 20 g by mouth daily at bedtime. We will monitor for patients reaction to medications. CBC was drawn yesterday. May consider transition to Clozaril. -When necessary Atsylvie and Ricardodon for agitation/aggression. -SW on board for discharge planning. Encouraged the patient to participate in milieu.
[2020-07-11 06:59] VITALS: BP 106/59; PULSE 67; TEMP 98.2
[2020-07-11] MEDS: OLANZapine 10 MG TAB PO SCH (08:04)
--- NOTE | 2020-07-11 11:42 | P.DS ---
Providers Date of admission: 06/29/20 16:02 Expected date of discharge: 07/11/20 Attending physician: Mando Tirado MD Consults: 06/29/20 16:05 Consult Physician Routine Consulting Provider: Dilma Encinas Consult Reason/Comments: medical management Do you want consulting provider notified?: Yes Primary care physician: Stated None - Discharge Diagnosis(es) (1) Schizophrenia Current Visit: Yes Status: Acute Priority: High Hospital Course: Admission HPI: Patient is a 49-year-old male was admitted for psychosis. Patient presented to the hospital on 06/29/2020 brought in by EMS. Patient was found walking and wandering by police and refused to disclose where he was going to. Currently the patient is endorsing significant symptoms of psychosis. He reports auditory and visual hallucinations. In regards auditory hallucinations, he states that he hears multiple conversations per day. He states he hears the voices of people he has met. He denies any command type or persecutory hallucinations. He endorses visual hallucinations. He states he sees spirits all the time and "they help me with my magic." He also reports that the spirits help him to read minds. He further endorses other delusional thoughts including paranoia towards his father and is expressing a desire to find a place to live for his father cannot find him. He also reports that he believes he is and has no pulse. He states that he has not been in adherent with his medications. He reports that he is taking Zyprexa and has a Prolixin IM that he is supposed to receive her [facility]. He reports that he has not been taking his medications in o humza one month. He reports intermittent taking Zyprexa to help him sleep. In regards to mood disorder, he is not endorsing any significant symptoms of depression today. He denies any suicidal or homicidal ideations, intentions, and/or plans. He denies any prior attempts at suicide. He does report going 4- 5 days without any sleep but denies any history of impulsivity, grandiosity, or increased goal-directed behavior. In regards to substance use, patient denies any tobacco, alcohol, marijuana, or any other illicit drug use. Hospital course: Upon admission to the unit patient was initially very psychotic and responding to internal stimuli. He was noted to be wandering around the hallways talking and singing to himself. Patient was however directable and agreeable to commence treatment. Patient got along well with other patients on the unit and followed unit protocol. Patient was compliant with the medications and denied any side effects throughout hospital course. Patient was started on his home medications of Zyprexa and his IM Prolixin. His Zyprexa was gradually titrated to a dose of 10 mg in the morning and 20 mg at bedtime. Initially, there was concern that the patient was significantly psychotic and not at baseline as he was paranoid towards his father. Due to the patient's significant violent history towards his father, this was very concerning. There was an initial plan to transition the patient to Clozaril. Patient did display a response to the increased Zyprexa and was able to reason and be less paranoid towards his father.. Patient spoke of his stressors and engaged in therapy both group and individual. Patient was also seen by medical team for history and physical exam. Throughout the course of the hospitalization patient gradually improved with regards to psychosis, paranoia and sleep and became future oriented with improved insight and judgment. On the day of discharge patient denied any suicidal or homicidal ideations intent or plan denied any auditory or visual hallucinations. Patient endorsed wanting to live for his health and family. The patient denied any access to guns or weapons. Patient denied any paranoia and did not endorse any delusions. Patient does not have a significant history of substance abuse however was counseled on abstaining from all substances including alcohol and marijuana. Patient was also counseled on the medications and need for regular compliance and was encouraged to follow-up with their outpatient appointment for mental health and also for primary care. Prior to discharge a family meeting will be arranged by addiction social worker to answer any questions and ensure safety upon discharge. The patient tolerated the medications well. He denied any chest pain, EPS symptoms, or muscle tightness. Mental status exam: General Appearance: Patient appears to be stated age is alert, pleasant, and cooperative. Patient is in no acute distress and has fair hygiene and grooming Behavior: Patient is calmly seated without any agitated behavior. Speech: Patient's speech is fluent and nonpressured. Mood/Affect: Patient reports their mood is "much better", affect is congruent and euthymic. Suicidality/Homicidality: Patient denies having any suicidal or homicidal ideation intent or plan. Perceptions: Patient denies any auditory or visual hallucinations. Though content/process: There is no evidence of any delusional thought content and thought process is linear and goal-directed more future oriented Memory and concentration: AOX3, grossly intact for the purposes of this session. Can spell "WORLD" backwards correctly. Judgment and insight: Improved with guarded prognosis Impression: Schizophrenia Plan: -Continue with discharge today as patient has improved and stabilized psychiatrically and is not currently an imminent threat to himself and/or others. Patient will remain at chronically elevated risk for harm to self and/or others due to his impulsivity and polysubstance abuse. -Continue medications: Prolixin Decanoate 25 mg IM was administered on 07/10/2020. Next dose to be administered on 07/24/2020. Zyprexa 10 mg po every morning and 20 g daily at bedtime. -Patient was counseled on the need for medication compliance and appropriate follow-up at mental health and also primary care for medical issues. Patient verbalized understanding and agreed. -Social work to arrange for and conduct family meeting to ensure safety upon discharge and answer any questions/concerns. Social work also to arrange for patients follow up appointments with [facility] for psychiatric care along with follow up with primary care provider. -Patient counseled on abstaining from recreational drugs and marijuana and alcohol. Was informed/educated on the adverse effects on their physical and mental health. Patient verbally agreed and understood. -Patient was instructed to return to the hospital or seek immediate medical care if their psychiatric or medical symptoms do worsen or reoccur. Vital Signs Temp 98.2 F 07/11/20 06:34 Pulse 67 07/11/20 06:34 Resp 16 07/11/20 06:34 BP 106/59 07/11/20 06:34 Pulse Ox 98 07/08/20 06:56 Allergies Allergy/AdvReac Type Severity Reaction Status Date / Time yeast, dried Allergy Unknown Verified 06/29/20 17:26 Laboratory Results WBC 5.5 k/uL (3.8-10.6) 07/09/20 15:07 RBC 5.33 m/uL (4.30-5.90) 07/09/20 15:07 Hgb 15.4 gm/dL (13.0-17.5) 07/09/20 15:07 Hct 47.0 % (39.0-53.0) 07/09/20 15:07 MCV 88.3 fL (80.0-100.0) 07/09/20 15:07 MCH 28.9 pg (25.0-35.0) 07/09/20 15:07 MCHC 32.8 g/dL (31.0-37.0) 07/09/20 15:07 RDW 12.5 % (11.5-15.5) 07/09/20 15:07 Plt Count 231 k/uL (150-450) 07/09/20 15:07 Neutrophils % 63 % 07/09/20 15:07 Lymphocytes % 24 % 07/09/20 15:07 Monocytes % 7 % 07/09/20 15:07 Eosinophils % 2 % 07/09/20 15:07 Basophils % 1 % 07/09/20 15:07 Neutrophils # 3.5 k/uL (1.3-7.7) 07/09/20 15:07 Lymphocytes # 1.3 k/uL (1.0-4.8) 07/09/20 15:07 Monocytes # 0.4 k/uL (0-1.0) 07/09/20 15:07 Eosinophils # 0.1 k/uL (0-0.7) 07/09/20 15:07 Basophils # 0.0 k/uL (0-0.2) 07/09/20 15:07 Sodium 141 mmol/L (137-145) 06/30/20 06:54 Potassium 3.8 mmol/L (3.5-5.1) 06/30/20 06:54 Chloride 107 mmol/L (98-107) 06/30/20 06:54 Carbon Dioxide 28 mmol/L (22-30) 06/30/20 06:54 Anion Gap 6 mmol/L 06/30/20 06:54 BUN 27 mg/dL (9-20) H 06/30/20 06:54 Creatinine 0.99 mg/dL (0.66-1.25) 06/30/20 06:54 Est GFR (CKD-EPI)AfAm >90 (>60 ml/min/1.73 sqM) 06/30/20 06:54 Est GFR (CKD-EPI)NonAf 90 (>60 ml/min/1.73 sqM) 06/30/20 06:54 Glucose 118 mg/dL (74-99) H 06/30/20 06:[address] Glu mg/dL 111 06/30/20 06:54 Hemoglobin A1c 5.5 % (4.0-6.0) 06/30/20 06:54 Calcium 8.9 mg/dL (8.4-10.2) 06/30/20 06:54 Total Bilirubin 0.6 mg/dL (0.2-1.3) 06/30/20 06:54 AST 55 U/L (17-59) 06/30/20 06:54 ALT 27 U/L (4-49) 06/30/20 06:54 Alkaline Phosphatase 63 U/L (38-126) 06/30/20 06:54 Total Protein 6.6 g/dL (6.3-8.2) 06/30/20 06:54 Albumin 4.1 g/dL (3.5-5.0) 06/30/20 06:54 Triglycerides 91 mg/dL (<150) 06/30/20 06:54 Cholesterol 178 mg/dL (<200) 06/30/20 06:54 LDL Cholesterol, Calc 94 mg/dL (0-99) 06/30/20 06:54 HDL Cholesterol 66 mg/dL (40-60) H 06/30/20 06:54 TSH 2.810 mIU/L (0.465-4.680) 06/30/20 06:54 Urine Color Yellow 06/29/20 14:59 Urine Appearance Cloudy (Clear) 06/29/20 14:59 Urine pH 6.0 (5.0-8.0) 06/29/20 14:59 Ur Specific [place] 1.034 (1.001-1.035) 06/29/20 14:59 Urine Protein 1+ (Negative) H 06/29/20 14:59 Urine Glucose (UA) Negative (Negative) 06/29/20 14:59 Urine Ketones 1+ (Negative) H 06/29/20 14:59 Urine Blood Small (Negative) H 06/29/20 14:59 Urine Nitrite Negative (Negative) 06/29/20 14:59 Urine Bilirubin Negative (Negative) 06/29/20 14:59 Urine Urobilinogen 2.0 mg/dL (<2.0) 06/29/20 14:59 Ur Leukocyte Esterase Negative (Negative) 06/29/20 14:59 Urine RBC 93 /hpf (0-5) H 06/29/20 14:59 Urine WBC 2 /hpf (0-5) 06/29/20 14:59 Urine Mucus Many /hpf (None) H 06/29/20 14:59 Urine Opiates Screen Not Detected (NotDetected) 06/29/20 14:59 Ur Oxycodone Screen Not Detected (NotDetected) 06/29/20 14:59 Urine Methadone Screen Not Detected (NotDetected) 06/29/20 14:59 Ur Propoxyphene Screen Not Detected (NotDetected) 06/29/20 14:59 Ur Barbiturates Screen Not Detected (NotDetected) 06/29/20 14:59 U Tricyclic Antidepress Not Detected (NotDetected) 06/29/20 14:59 Ur Phencyclidine Scrn Not Detected (NotDetected) 06/29/20 14:59 Ur Amphetamines Screen Not Detected (NotDetected) 06/29/20 14:59 U Methamphetamines Scrn Not Detected (NotDetected) 06/29/20 14:59 U Benzodiazepines Scrn Not Detected (NotDetected) 06/29/20 14:59 Urine Cocaine Screen Not Detected (NotDetected) 06/29/20 14:59 U Marijuana (THC) Screen Not Detected (NotDetected) 06/29/20 14:59 Patient Condition at Discharge: Stable Plan - Discharge Summary Discharge Rx Participant: Yes New Discharge Prescriptions: New OLANZapine [ZyPREXA] 10 mg PO DAILY 30 Days tab OLANZapine [ZyPREXA] 20 mg PO HS 30 Days tab Continue Cholecalciferol [Vitamin D3 (25 Mcg = 1000 Iu)] 5,000 unit PO DAILY fluPHENAZine decanoate [Prolixin Decanoate] 25 mg IM Q14D #1 ml Discontinued OLANZapine [ZyPREXA] 20 mg PO HS Discharge Medication List Cholecalciferol [Vitamin D3 (25 Mcg = 1000 Iu)] 5,000 unit PO DAILY 06/29/20 [History] OLANZapine [ZyPREXA] 10 mg PO DAILY 30 Days tab 07/11/20 [Rx] OLANZapine [ZyPREXA] 20 mg PO HS 30 Days tab 07/11/20 [Rx] fluPHENAZine decanoate [Prolixin Decanoate] 25 mg IM Q14D #1 ml 07/11/20 [Rx] Follow up Appointment(s)/Referral(s): [facility] [Outside] - 07/15/20 11:00 am (07-15-20 11 am with Thor Saenz 07/19/[address] at [address] Link at [facility]) None,Stated [Primary Care Provider] - 1-2 days Activity/Diet/Wound Care/Special Instructions: Activity and diet as tolerated. Avoid the use of street drugs and alcohol. Take all medications as prescribed. When you are in need of refills on your medicatio ns please contact your medical provider and/or outpatient psychiatrist to have this done. Please go to scheduled outpatient appointment for aftercare treatment. If symptoms return or become worse, call the crisis line at and/or go to the nearest emergency room for evaluation. Discharge Disposition: HOME SELF-CARE
== END 2020-07-11 14:33 | disposition home or self-care (01) | DRG 885 ==
LOC: EC 13:43 → 3MHU 16:02
PROVIDERS: ADMIT Psychiatry & Neurology Psychiatry; ATTEND Psychiatry & Neurology Psychiatry
DX: F20.9 Schizophrenia, unspecified (principal); F39 Unspecified mood [affective] disorder; Z79.899 Other long term (current) drug therapy; Z91.09 Other allergy status, other than to drugs and biological substances; Z98.890 Other specified postprocedural states; Z91.14 Patient's other noncompliance with medication regimen; Z91.83 Wandering in diseases classified elsewhere
CPT/HCPCS: 80053; 80061; 80306; 81001; 82075; 83036; 84443; 85025; 99285

== ENCOUNTER 2022-05-28 12:19 | Emergency (ER) | payer MEDICARE, OTHER ==
[2022-05-28 12:50] VITALS: BP 117/82; PULSE 99; RESP 20; TEMP 98.5
--- NOTE | 2022-05-28 14:03 | XR ---
EXAMINATION TYPE: XR chest 2V DATE OF EXAM: 05/28/2022 COMPARISON: NONE HISTORY: Upper respiratory symptoms. Cough and weakness. TECHNIQUE: Frontal and lateral views of the chest are obtained. FINDINGS: There is no suspicious focal air space opacity, pleural effusion, or pneumothorax seen. T he cardiac silhouette size is within normal limits. The osseous structures are intact. IMPRESSION: No acute airspace opacity.
--- NOTE | 2022-05-28 14:06 | ED ---
URI HPI - General Chief Complaint: Upper Respiratory Infection Stated Complaint: cough,fever Time Seen by Provider: 05/28/22 13:20 Source: patient, RN notes reviewed Mode of arrival: ambulatory Limitations: no limitations - History of Present Illness Initial Comments: This is a 51-year-old male who presents to the emergency department for upper respiratory symptoms for the last 2 days. States that 3 days ago, his roommate's mother was at his apartment smoking cigarettes. The next day, he began to acquire a cough. States that he has had reactions to cigarette smoke in the past and wonders if this may be the issue. He also wonders if he may have bronchitis. He requests a note saying that he is allergic to cigarette smoke so he can show his roommate and get his mother to stop smoking in the house. Denies any sick contacts. Denies any fevers, chills, sore throat, chest pain, palpitations, abdominal pain, nausea, vomiting, diarrhea, back pain, or headaches. MD Complaint: cough Onset/Timin -: days(s) - Related Data Home Medications Medication Instructions Recorded Confirmed Cholecalciferol [Vitamin D3 (25 5,000 unit PO DAILY 06/29/20 06/29/20 Mcg = 1000 Iu)] Previous Rx's Medication Instructions Recorded OLANZapine [ZyPREXA] 10 mg PO DAILY 30 Days tab 07/11/20 OLANZapine [ZyPREXA] 20 mg PO HS 30 Days tab 07/11/20 fluPHENAZine decanoate [Prolixin 25 mg IM Q14D #1 ml 07/11/20 Decanoate] Albuterol Inhaler [Ventolin Hfa 1 puff INHALATION QID PRN #8 gm 05/28/22 Inhaler] predniSONE 50 mg PO QAM 5 Days #5 tablet 05/28/22 Allergies Allergy/AdvReac Type Severity Reaction Status Date / Time yeast, dried Allergy Unknown Verified 06/29/20 17:26 Review of Systems ROS Statement: Those systems with pertinent positive or pertinent negative responses have been documented in the HPI. ROS Other: All systems not noted in ROS Statement are negative. Past Medical History Past Medical History: No Reported History History of Any Multi-Drug Resistant Organisms: None Reported Past Surgical History: No Surgical Hx Reported Additional Past Surgical History / Comment(s): ORAL SURGERY Past Psychological History: Schizoaffective Disorder, Schizophrenia Smoking Status: Never smoker Past Alcohol Use History: None Reported Past Drug Use History: None Reported - Past Family History Father Family Medical History: Unable to Obtain Mother Family Medical History: Unable to Obtain General Exam Limitations: no limitations General appearance: alert, in no apparent distress Head exam: Present: atraumatic, normocephalic, normal inspection Respiratory exam: Present: normal lung sounds bilaterally. Absent: respiratory distress, wheezes, rales, rhonchi, stridor Cardiovascular Exam: Present: regular rate, normal rhythm, normal heart sounds. Absent: systolic murmur, diastolic murmur, rubs, gallop, clicks Neurological exam: Present: alert, oriented X3, CN II-XII intact Psychiatric exam: Present: normal affect, normal mood Skin exam: Present: warm, dry, intact, normal color. Absent: rash Course Vital Signs 05/28/22 12:45 Temperature 98.5 F Pulse Rate 99 Respiratory 20 Rate Blood Pressure 117/82 O2 Sat by Pulse 99 Oximetry Medical Decision Making - Medical Decision Making This is a 51-year-old male who presents to the emergency department for upper respiratory symptoms. Patient tested negative for COVID-19. Chest x-ray revealed no acute cardiopulmonary process. It is possible that the patient may have a viral upper respiratory infection or he is experiencing a hypersensitivity to the secondhand smoke exposure. Prescription for albuterol inhaler and prednisone provided, which will help with his symptoms in both a respiratory infection and hypersensitivity reaction. Advised to discuss the cigarette smoke exposure with his roommate to prevent flareups in the future. Return precautions reviewed in depth, the patient is instructed to return to the emergency department with any new, worsening, or concerning symptoms. Patient verbalized understanding. This case was discussed in detail with the attending ED physician. Presentation, findings, and treatment plan discussed in detail as well. - Lab Data Lab Results 05/28/22 Range/Units 12:50 Coronavirus (PCR) Not Detected (Not Detectd) - Radiology Data Radiology results: report reviewed, image reviewed Disposition Clinical Impression: Second hand smoke exposure, Cough Disposition: HOME SELF-CARE Instructions (If sedation given, give patient instructions): How to Use a Metered-Dose Inhaler (ED), Allergic Rhinitis (ED) Additional Instructions: Return to the emergency department with any new, worsening, or concerning symptoms. Take the prednisone as prescribed for 5 days. Use the albuterol inhaler up to every 6 hours as needed for coughing or shortness of breath. Prescriptions: predniSONE 50 mg PO QAM 5 Days #5 tablet Albuterol Inhaler [Ventolin Hfa Inhaler] 1 puff INHALATION QID PRN #8 gm PRN Reason: Cough Is patient prescribed a controlled substance at d/c from ED?: No Referrals: None,Stated [Primary Care Provider] - 1-2 days
== END 2022-05-28 15:06 | disposition home or self-care (01) ==
LOC: EC 12:19
DX: R05.9 Cough, unspecified (principal); Z77.22 Contact with and (suspected) exposure to environmental tobacco smoke (acute) (chronic); Z91.018 Allergy to other foods
CPT/HCPCS: 71046; 87635; 99283

== ENCOUNTER 2022-07-02 13:10 | Emergency (ER) | payer MEDICARE, OTHER ==
[2022-07-02 13:18] VITALS: BP 119/73; PULSE 119; RESP 16; TEMP 98.3
--- NOTE | 2022-07-02 13:55 | ED ---
General Adult HPI - General Chief complaint: Extremity Injury, Upper Stated complaint: Covid test Time Seen by Provider: 07/02/22 13:14 Source: patient, RN notes reviewed Mode of arrival: ambulatory Limitations: no limitations - History of Present Illness Initial comments: 51-year-old male resents to emergency Department presents today with chief complaint of wanting COVID-19 testing. Patient has a slight cough. Patient states that his father contact him and stated that he tested positive. Patient denies any shortness breath no fevers or chills no chest pain no GI symptoms no other complaints. - Related Data Home Medications Medication Instructions Recorded Confirmed Cholecalciferol [Vitamin D3 (25 5,000 unit PO DAILY 06/29/20 06/29/20 Mcg = 1000 Iu)] Previous Rx's Medication Instructions Recorded OLANZapine [ZyPREXA] 10 mg PO DAILY 30 Days tab 07/11/20 OLANZapine [ZyPREXA] 20 mg PO HS 30 Days tab 07/11/20 fluPHENAZine decanoate [Prolixin 25 mg IM Q14D #1 ml 07/11/20 Decanoate] Albuterol Inhaler [Ventolin Hfa 1 puff INHALATION QID PRN #8 gm 05/28/22 Inhaler] predniSONE 50 mg PO QAM 5 Days #5 tablet 05/28/22 Allergies Allergy/AdvReac Type Severity Reaction Status Date / Time yeast, dried Allergy Unknown Verified 07/02/22 13:14 Review of Systems ROS Statement: Those systems with pertinent positive or pertinent negative responses have been documented in the HPI. ROS Other: All systems not noted in ROS Statement are negative. Past Medical History Past Medical History: No Reported History History of Any Multi-Drug Resistant Organisms: None Reported Past Surgical History: No Surgical Hx Reported Additional Past Surgical History / Comment(s): ORAL SURGERY Past Psychological History: Schizoaffective Disorder, Schizophrenia Smoking Status: Never smoker Past Alcohol Use History: None Reported Past Drug Use History: None Reported - Past Family History Father Family Medical History: Unable to Obtain Mother Family Medical History: Unable to Obtain General Exam Limitations: no limitations General appearance: alert, in no apparent distress Head exam: Present: atraumatic, normocephalic, normal inspection Eye exam: Present: normal appearance, PERRL, EOMI. Absent: scleral icterus, conjunctival injection, periorbital swelling ENT exam: Present: normal exam, mucous membranes moist Neck exam: Present: normal inspection, full ROM. Absent: tenderness, meningismus, lymphadenopathy Respiratory exam: Present: normal lung sounds bilaterally. Absent: respiratory distress, wheezes, rales, rhonchi, stridor Cardiovascular Exam: Present: regular rate, normal rhythm, normal heart sounds. Absent: systolic murmur, diastolic murmur, rubs, gallop, clicks GI/Abdominal exam: Present: soft, normal bowel sounds. Absent: distended, tenderness, guarding, rebound, rigid Course Vital Signs 07/02/22 13:15 Temperature 98.3 F Pulse Rate 119 H Respiratory 16 Rate Blood Pressure 119/73 O2 Sat by Pulse 99 Oximetry Medical Decision Making - Medical Decision Making Patient is COVID-19 positive no signs of distress patient will be discharged in stable condition. - Lab Data Lab Results 07/02/22 Range/Units 13:20 Coronavirus (PCR) Detected A (Not Detectd) Disposition Clinical Impression: COVID-19 Disposition: HOME SELF-CARE Condition: Stable Instructions (If sedation given, give patient instructions): COVID-19 (Coronavirus Disease 2019) (ED) Additional Instructions: Please return to the Emergency Department if symptoms worsen or any other concerns. Is patient prescribed a controlled substance at d/c from ED?: No Referrals: None,Stated [Primary Care Provider] - 1-2 days Time of Disposition: 13:55
== END 2022-07-02 14:18 | disposition home or self-care (01) ==
LOC: EC 13:10
DX: U07.1 COVID-19 (principal); Z91.048 Other nonmedicinal substance allergy status
CPT/HCPCS: 87635; 99283

== ENCOUNTER 2022-08-25 23:02 | Inpatient (IN) | payer MEDICARE, MEDICAID ==
--- NOTE | 2022-08-25 23:44 | ED ---
Psych HPI - General Chief Complaint: Psychiatric Symptoms Stated Complaint: Mental health Time Seen by Provider: 08/25/22 23:43 Source: patient, RN notes reviewed, old records reviewed Mode of arrival: ambulatory - History of Present Illness Initial Comments: This is a 51-year-old male to the emergency department for evaluation patient is very delusional having delirious thoughts racing thoughts, things he is a was admitted thinks his friends are with her signs are stable people and other people try to do harm. Patient is a poor strain secondary to his delusions MD Complaint: altered mental status -: unknown Associated Psychiatric Symptoms: racing thoughts, auditory hallucinations, delusions Quality: intermittent, getting worse Improves With: none Worsens With: none Context: not taking psychiatric medications, significant life stressor Associated Symptoms: denies other symptoms Treatments Prior to Arrival: placed on mental health hold - Related Data Home Medications Medication Instructions Recorded Confirmed Cholecalciferol [Vitamin D3 (25 5,000 unit PO DAILY 06/29/20 06/29/20 Mcg = 1000 Iu)] Previous Rx's Medication Instructions Recorded OLANZapine [ZyPREXA] 10 mg PO DAILY 30 Days tab 07/11/20 OLANZapine [ZyPREXA] 20 mg PO HS 30 Days tab 07/11/20 fluPHENAZine decanoate [Prolixin 25 mg IM Q14D #1 ml 07/11/20 Decanoate] Albuterol Inhaler [Ventolin Hfa 1 puff INHALATION QID PRN #8 gm 05/28/22 Inhaler] predniSONE 50 mg PO QAM 5 Days #5 tablet 05/28/22 Allergies Allergy/AdvReac Type Severity Reaction Status Date / Time yeast, dried Allergy Unknown Verified 08/25/22 23:35 Review of Systems ROS Statement: Those systems with pertinent positive or pertinent negative responses have been documented in the HPI. ROS Other: All systems not noted in ROS Statement are negative. Past Medical History Past Medical History: No Reported History History of Any Multi-Drug Resistant Organisms: None Reported Past Surgical History: No Surgical Hx Reported Additional Past Surgical History / Comment(s): ORAL SURGERY Past Psychological History: Schizoaffective Disorder, Schizophrenia Smoking Status: Never smoker Past Alcohol Use History: None Reported Past Drug Use History: None Reported - Past Family History Father Family Medical History: Unable to Obtain Mother Family Medical History: Unable to Obtain General Exam Limitations: no limitations General appearance: alert, in no apparent distress Head exam: Present: atraumatic, normocephalic, normal inspection Eye exam: Present: normal appearance, PERRL, EOMI. Absent: scleral icterus, conjunctival injection, periorbital swelling ENT exam: Present: normal exam, mucous membranes moist Neck exam: Present: normal inspection. Absent: tenderness, meningismus, lymphadenopathy Respiratory exam: Present: normal lung sounds bilaterally. Absent: respiratory distress, wheezes, rales, rhonchi, stridor Cardiovascular Exam: Present: normal rhythm, tachycardia, normal heart sounds. Absent: systolic murmur, diastolic murmur, rubs, gallop, clicks GI/Abdominal exam: Present: soft, normal bowel sounds. Absent: distended, tenderness, guarding, rebound, rigid Extremities exam: Present: normal inspection, full ROM, normal capillary refill. Absent: tenderness, pedal edema, joint swelling, calf tenderness Back exam: Present: normal inspection Neurological exam: Present: alert, oriented X3, CN II-XII intact Psychiatric exam: Present: normal affect, normal mood Skin exam: Present: warm, dry, intact, normal color. Absent: rash Course Vital Signs 08/25/22 08/25/22 23:30 23:52 Temperature 97.6 F 97.9 F Pulse Rate 115 H 98 Respiratory 20 16 Rate Blood Pressure 152/81 147/80 O2 Sat by Pulse 98 99 Oximetry - Reevaluation(s) Reevaluation #1: 08/26/22 05:21 Medical record is reviewed 08/26/22 05:21 medically clear for psychiatric evaluation Medical Decision Making - Medical Decision Making 51 male seen and evaluated by psychiatry here in the ER will be admitted for psychiatric evaluation and treatment - Lab Data Lab Results 08/26/22 Range/Units 04:20 Coronavirus (PCR) Not Detected (Not Detectd) Disposition Clinical Impression: Schizophrenia, Acute psychosis, Nonadherence to medication, Psychosis Disposition: TRANSFER TO PSYCH HOSP/UNIT Condition: Fair Is patient prescribed a controlled substance at d/c from ED?: No
[2022-08-26] MEDS ORDERED: LORazepam 2 MG/ML INJ IM PRN (05:35)
[2022-08-26] MEDS ORDERED: HALOPERIDOL LACTATE 5 MG/ML 1 ML VIAL IM PRN (06:00)
[2022-08-26] MEDS ORDERED: ACETAMINOPHEN TAB 325 MG TAB PO PRN (08:00)
[2022-08-26] MEDS ORDERED: MAG HYDROX/AL HYDROX/SIMETH 355 ML BOTTLE PO PRN (08:00)
[2022-08-26] MEDS ORDERED: LORazepam 1 MG TAB PO PRN (09:00)
[2022-08-26] MEDS ORDERED: ALBUTEROL HFA INHALER INHALATION PRN (09:00)
[2022-08-26] MEDS ORDERED: MAGNESIUM HYDROXIDE 2,400 MG/10 ML CUP PO PRN (09:00)
[2022-08-26] MEDS ORDERED: haloperidoL 5 MG TAB PO PRN (09:00)
--- NOTE | 2022-08-26 11:30 | P.HP ---
Psychiatric H&P - . H&P Date: 08/26/22 History & Physical: Allergies Allergy/AdvReac Type Severity Reaction Status Date / Time yeast, dried Allergy Unknown Verified 08/26/22 05:37 Vital Signs Temp 98.1 F 08/26/22 06:22 Pulse 82 08/26/22 06:22 Resp 14 08/26/22 06:22 BP 136/85 08/26/22 06:22 Pulse Ox 98 08/26/22 06:22 FiO2 Intake & Output 08/25/22 08/26/22 08/26/22 18:59 06:59 18:59 Weight 77.763 kg Laboratory Last Values Coronavirus (PCR) Not Detected (Not Detectd) 08/26/22 04:20 08/26/22 11:18 IDENTIFYING DATA: Patient is a 51-year-old male was admitted for psychosis, currently living with a roommate, has a history of schizoaffective disorder HPI: Patient has a history of schizoaffective disorder and several bizarre delusions. Patient currently follows up with Dr. link at [facility] and has been receiving Prolixin D 25 mg IM every 2 weeks, last dose was given on 08/24 Dose to be given on 09/07. Patient presented to the hospital yesterday exhibiting severe bizarre delusions and racing thoughts and altered mental status. Patient was previously admitted to the mental health unit in June 2020. Patient was admitted voluntarily to the mental health unit last night and agreeable to speak to comic book writer today. He is exhibiting walking the hallways carrying several magazines. Patient appeared to be pleasantly bizarre with comic book writer. He claims that he is a "good wizard" and states that he is surrounded by "werewolves". He claims that "we can have good worriers and this place" and claims that there will be a "[employer] and will all moved in". He claims that he feels safe on the unit and is denying any paranoia at this time. He claims that the unit is a "opposite of a haunted house". He is alert and oriented to his name only, he believes that it is 09/19/2022 and that he is in "[facility]" and not in [place]. He appears to endorse several delusions, loosely formed, bizarre however was directable during conversation. He answered some questions appropriately. When asked about hearing voices he states "I'm hearing you because I am a wizard" and denied any visual hallucinations. She denies any suicidal or homicidal ideations intent or plan. He claims that his sleep has been poor appetite as been fair. He states that "I am a person and I don't need to sleep heat or drink" however does deny depression at this time or any anxiety. Patient has poor reality testing and poor insight and judgment. In regards to substance use, patient denies any tobacco, alcohol, marijuana, or any other illicit drug use. PAST PSYCHIATRIC HISTORY: Patient states that he is diagnosed with schizoaffective disorder. He reports prior trials with Zyprexa and Prolixin which she receives through [facility], patient's last dose of Prolixin D was given on 08/24 Dose of 25 mg IM due on 09/07. He currently follows up with Dr Link. Reports multiple psychiatric hospitalizations and last admission on the unit was jun 2022.. Patient denies any history of suicide attempts in the past. PMH:denies ALLERGIES: as per EMR CHEMICAL DEPENDENCY HISTORY: as per HPI FAMILY PSYCHIATRIC/SUBSTANCE USE HISTORY: denies SOCIAL HISTORY: Patient was born and raised in [place], [place]. He reports no source of income. He has attended 2 years of college. He has his own apartment where he lives with a "Nixon" who is his roommate/friend. MENTAL STATUS EXAM: General Appearance: Patient appears to be stated age is alert, directable, bizarre and attempts to cooperate. Patient appears to have fair hygiene and grooming. Slightly disheveled. carrying magazines Behavior: Patient is seated without any agitated behavior. noted to be wandering the halls talking to himself. bizarre behvrs Speech: Patient's speech is fluent and nonpressured. preoccupations Mood/Affect: Patient reports their mood is OK, affect is congruent and blunted. Suicidality/Homicidality: Patient denies having any homicidal ideation intent or plan. Denies any suicidal ideations intent or plan Perceptions: Patient endorses auditory and denies visual hallucinations. Though content/process: Magical thinking, other loosely formed bizarre delusions of being a wizard and also being a " person". Memory and concentration: AOX1 to name only, el[place] that he is "cypjher" and that todays date is sep 19 2022. Can spell "WORLD" backwards Judgment and insight: poor STRENGTHS/WEAKNESSES: strength is that patient has housing and is known to [facility]. Weakness is that patient has very poor isnight and reality testing. INTELLECT: average IMPRESSIONS: schizoaffective disorder, bipolar type PLAN: -Patient is admitted under voluntary status to MHU for stabilization of psychiatric symptoms and safety. Patient signed adult voluntary form and medication consent and is placed in patient's chart. -Medications : Will restart patient on Zyprexa 10 mg at bedtime for psychosis. Patient is receiving Prolixin D 25 mg IM through [facility] and last dose was given on 08/24 and will be due in q2wks. will likely increase dose to 37.5 mg q2wks. -Ativan and Haldol PRN for agitation/aggression -Patient was informed of the risks, benefits and side effects of the medication and patient verbally consented to taking the medications. Patient signed med consent form and was placed in chart. -Internal Medicine consult to perform medical evaluation and physical. - on board for discharge planning. Encourage patient to participate in groups to work on coping skills. patient will continue f/u with [facility]. 08/26/22 11:30
[2022-08-26] MEDS: OLANZapine 10 MG TAB PO SCH (21:19)
--- NOTE | 2022-08-27 00:22 | P.PN ---
Progress Note - Text Progress Note Date: 08/26/22 Attempted to see the patient in the MHU at 2200 on 08/26. Informed by the MHU RN that the patient was actively psychotic and inappropriate for evaluation.
[2022-08-27 07:34] LABS: Basophils % (A) 0 %; Eosinophils % (A) 0 %; HCT 43.5 % (39.0-53.0); HGB 14.9 gm/dL (13.0-17.5); Lymphocytes # (A) 0.9 k/uL (1.0-4.8); Lymphocytes % (A) 8 %; MCH 29.7 pg (25.0-35.0); MCHC 34.4 g/dL (31.0-37.0); MCV 86.5 fL (80.0-100.0); Mean Platelet Volume 7.3; Monocytes # (A) 0.8 k/uL (0-1.0); Monocytes % (A) 8 %; Neutrophils # (A) 8.2 k/uL (1.3-7.7); Neutrophils % (A) 80 %; Platelet Count 222 k/uL (150-450); RBC 5.03 m/uL (4.30-5.90); RDW 12.4 % (11.5-15.5); WBC 10.2 k/uL (3.8-10.6)
[2022-08-27 08:14] LABS: ALT 62 U/L (4-49); AST 199 U/L (17-59); African American GFR (CKD) >90 (>60 ml/min/1.73 sqM); Albumin 4.7 g/dL (3.5-5.0); Alkaline Phosphatase 83 U/L (38-126); Anion Gap 9 mmol/L; Bilirubin, Delta 0.4 mg/dL (0.0-0.2); Bilirubin,Unconjugated 1.1 mg/dL (0.0-1.1); Blood Urea Nitrogen 26 mg/dL (9-20); Calcium 9.2 mg/dL (8.4-10.2); Carbon Dioxide 28 mmol/L (22-30); Chloride 106 mmol/L (98-107); Glucose 103 mg/dL (74-99); Non-African American GFR(CKD) >90 (>60 ml/min/1.73 sqM); Potassium 4.1 mmol/L (3.5-5.1); Sodium 143 mmol/L (137-145); Total Bilirubin 1.5 mg/dL (0.2-1.3); Total Protein 7.6 g/dL (6.3-8.2)
[2022-08-27] MEDS: CHOLECALCIFEROL 125 MCG (5000 IU) TABLET PO SCH (08:46)
--- NOTE | 2022-08-27 13:10 | P.PN ---
Progress Note - Text Progress Note Date: 08/27/22 Interval History: Patient was seen wandering the hallways and was directable and agreeable to curtis barba with commercial underwriter in the office. Patient was seen earlier in the hallway and at the table near the activity room kissing the cover of his magazine. Patient continues to be polite and directable during conversation and at times inappropriate. When asked about the magazine he states "I just love Leandro Lopez, something about him". He refers to the unit as being on "[place]" and continues to speak about werewolves and being a wizard. She appears to be mildly less delusional today however continues to have poor reality testing. He claims that he is able to sleep fairly last night and claims that "I didn't have to take the medication last night" with regards to his Zyprexa as he refused it. He states that he believes he did not need it however after commercial underwriter spoke with him about his states that she will take it tonight and continue taking it. He is denying any depression or anxiety, claims that he is eating fairly. Kidneys have very limited insight and judgment. At this time patient denies any suicidal or homical ideations, intent or plan. Patient denies any auditory, visual hallucinations. continues to endorse several loosely formed delusions and fantasy thinking. Patient denies any side effects from the medications and has been compliant with meds. Mental Status Exam: General Appearance: Patient appears to be stated age is alert, directable, bizarre and attempts to cooperate, mildly improving. Patient appears to have fair hygiene and grooming. Slightly disheveled. carrying magazines Behavior: Patient is seated without any agitated behavior. bizarre behvrs, attempts to cooperate. Speech: Patient's speech is fluent and nonpressured. preoccupations Mood/Affect: Patient reports their mood is OK, affect is congruent and blunted. Suicidality/Homicidality: Patient denies having any homicidal ideation intent or plan. Denies any suicidal ideations intent or plan Perceptions: Patient endorses auditory and denies visual hallucinations. Though content/process: Magical thinking, other loosely formed bizarre delusions of being a wizard. fantasy beleifs and thinking. Memory and concentration: AOX1 to name only, beleives that he is "on [place]" and that todays date is sep 19 2022. Judgment and insight: chronically poor IMPRESSIONS: schizoaffective disorder, bipolar type Plan: -Patient continues to meet criteria for inpatient psychiatric admission for symptom stabilization and safety. Patient has signed adult voluntary form and medication consent and was placed in patient's chart. -Medications: continue Zyprexa 10 mg at bedtime for psychosis. Patient is rec eiving Prolixin D 25 mg IM through [facility] and last dose was given on 08/24 and will be due in q2wks. will likely increase dose to 37.5 mg q2wks. -When necessary Ativan and Haldol for agitation/aggression. -NRT - nicotine patch -SW on board for discharge planning. Encouraged the patient to participate in milieu. patient will continue f/u with [facility]. likely discharge in 2-3 days.
[2022-08-27 15:47] LABS: LDL Cholesterol,Calculated 102.8 mg/dL (0.0-131.0); VLDL Calculation 8.64 mg/dL (5.00-40.00)
[2022-08-27] MEDS: OLANZapine 10 MG TAB PO SCH (21:11)
--- NOTE | 2022-08-28 06:42 | P.CONS ---
History of Present Illness - Reason for Consult Consult date: 08/28/22 - History of Present Illness The patient is a 51-year-old male with a PMH of schizophrenia who was brought into the emergency room by his roommate for strange behavior. The patient was admitted to the mental health unit where he was seen and evaluated. The patient states that he has been seeing ghosts at his house, which prompted his roommate to bring him in. 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 He denied any physical complaints at the time of interview. Denied experiencing chest discomfort, shortness of breath, fever, chills, cough, nausea, vomiting, abdominal pain, diarrhea. Denied tobacco, alcohol, or illicit substance use. Review of systems: Pertinent positives and negatives as discussed in HPI, a complete review of systems was performed and all other systems are negative. Physical examination: General: non toxic, no distress, appears at stated age, overweight Derm: no unusual rashes/lesions, no unusual ecchymoses, warm, dry Head: atraumatic, normocephalic, symmetric Eyes: EOMI, no lid lag, anicteric sclera ENT: Nose and ears atraumatic, no thrush, no pharyngeal erythema Neck: trachea midline, supple Mouth: no lip lesion, mucus membranes moist Cardiovascular: S1S2 reg, no murmur, no edema Lungs: CTA bilateral, no rhonchi, no rales , no accessory muscle use Abdominal: soft, nontender to palpation, no guarding Ext: no gross muscle atrophy, no contractures, Neuro: No gross focal neuro deficits noted Psych: Alert, oriented Assessment/plan Psychosis -As per psychiatry Thank you for allowing us to participate in the care of this patient. We will follow peripherally. Do not hesitate to contact us with questions. Someone can be reached from the [facility] hospitalist group at all hours of the day at [phone]. Past Medical History Past Medical History: No Reported History History of Any Multi-Drug Resistant Organisms: None Reported Past Surgical History: No Surgical Hx Reported Additional Past Surgical History / Comment(s): ORAL SURGERY Smoking Status: Never smoker - Past Family History Father Family Medical History: Unable to Obtain Mother Family Medical History: Unable to Obtain Medications and Allergies Home Medications Medication Instructions Recorded Confirmed Type Cholecalciferol [Vitamin D3 (25 5,000 unit PO DAILY 06/29/20 06/29/20 History Mcg = 1000 Iu)] OLANZapine [ZyPREXA] 10 mg PO DAILY 30 Days tab 07/11/20 Rx OLANZapine [ZyPREXA] 20 mg PO HS 30 Days tab 07/11/20 Rx fluPHENAZine decanoate [Prolixin 25 mg IM Q14D #1 ml 07/11/20 08/26/22 Rx Decanoate] Albuterol Inhaler [Ventolin Hfa 1 puff INHALATION QID PRN #8 gm 05/28/22 Rx Inhaler] predniSONE 50 mg PO QAM 5 Days #5 tablet 05/28/22 08/26/22 Rx Allergies Allergy/AdvReac Type Severity Reaction Status Date / Time yeast, dried Allergy Unknown Verified 08/26/22 05:37 Physical Exam Vitals: Vital Signs Temp Pulse Resp BP Pulse Ox 08/28/22 05:24 97.9 F 97 18 115/73 100 Results CBC & Chem 7: 08/27/22 06:55 08/27/22 06:55 Labs: Abnormal Lab Results - Last 24 Hours (Table) 08/27/22 08/27/22 Range/Units 06:55 06:55 Neutrophils # 8.2 H (1.3-7.7) k/uL Lymphocytes # 0.9 L (1.0-4.8) k/uL BUN 26 H (9-20) mg/dL Glucose 103 H (74-99) mg/dL Total Bilirubin 1.5 H (0.2-1.3) mg/dL Delta Bilirubin 0.4 H (0.0-0.2) mg/dL AST 199 H (17-59) U/L ALT 62 H (4-49) U/L HDL Cholesterol 79.60 H (40.00-60.00) mg/dL
[2022-08-28] MEDS: CHOLECALCIFEROL 125 MCG (5000 IU) TABLET PO SCH (08:37)
--- NOTE | 2022-08-28 11:38 | P.PN ---
Progress Note - Text Progress Note Date: 08/28/22 Interval History: Patient was seen wandering the hallways and was directable and agreeable to curtis barba with credit underwriter in the office. Patient continues to be walking around the unit with a magazine. She attempted to elope from the unit yesterday. Patient continues to be refusing Zyprexa at nighttime. Patient today was fairly concrete was directable however continues to be bizarre. He continues to believe that he is a "wizard" however appeared to be mildly less preoccupied with this delusion. He notes today that he is in [facility]. He notes the correct date as well. He is denying any depression or anxiety. He has very poor insight and judgment and claims that he does not need the medications and doesn't "feel like taking it". At this time patient denies any suicidal or homical ideations, intent or plan. Patient denies any auditory, visual hallucinations. continues to endorse several loosely formed delusions and fantasy thinking. When credit underwriter asked patient more about his medications and why he is not taking it, patient was impulsive got up and left the room without ans wering the question. Mental Status Exam: General Appearance: Patient appears to be stated age is alert, directable, bizarre. Patient appears to have fair hygiene and grooming. Slightly disheveled. carrying magazines Behavior: Patient is seated without any agitated behavior. bizarre behvrs, impulsive Speech: Patient's speech is fluent and nonpressured. preoccupations Mood/Affect: Patient reports their mood is "ok", affect is congruent and blunted Suicidality/Homicidality: Patient denies having any homicidal ideation intent or plan. Denies any suicidal ideations intent or plan Perceptions: Patient endorses auditory and denies visual hallucinations. Though content/process: Magical thinking, other loosely formed bizarre delusions of being a wizard. fantasy beleifs and thinking. Memory and concentration: AOX3, improving attention span. Judgment and insight: chronically poor IMPRESSIONS: Schizoaffective disorder, bipolar type Plan: -Patient continues to meet criteria for inpatient psychiatric admission for symptom stabilization and safety. Patient has signed adult voluntary form and medication consent and was placed in patient's chart. -Medications: continue Zyprexa 10 mg at bedtime for psychosis. Patient is refusing this medication. Prolixin D 25 mg IM through [facility] and last dose was given on 08/24 and will be due in q2wks on 09/07. will likely increase dose to 37.5 mg q2wks to rely less on PO meds. -When necessary Ativan and Haldol for agitation/aggression. -NRT - nicotine patch -SW on board for discharge planning. Encouraged the patient to participate in milieu. Patient is refusing meds at this time and has poor insight and judgment, still psychotic. at this time will complete 2 cert plus a petition and file for involuntary.
[2022-08-28] MEDS: OLANZapine 10 MG TAB PO SCH (22:30)
[2022-08-29] MEDS: OLANZapine 10 MG TAB PO SCH ×2 (06:10→21:25)
[2022-08-29] MEDS: CHOLECALCIFEROL 125 MCG (5000 IU) TABLET PO SCH (08:42)
--- NOTE | 2022-08-29 18:50 | P.PN ---
Progress Note - Text Progress Note Date: 08/29/22 Interval history: Patient was seen wandering the hallways near the nurse's station and was directable and agreeable to speak with grant writer. He is disheveled and holding a pile of magazines. He reports auditory hallucinations of "spritis of the father, dragons, cherubs, good people and [employer]". At this time, patient denies any suicidal or homicidal ideation, intent or plan. Nurse reports he had poor sleep last night, refused his Zyprexa 10 mg last night, was up most of the night and finally took the Zyprexa at 6:10 am this morning and slept a few hours this morning. Patient denies any side effects from the medications. We discussed the importance of taking his Zyprexa tonight and he expresses agreement. Mental status exam: General Appearance: Patient appears to be stated age, is disheveled with poor hygiene, messy hair, dressed in hospital gown, holding pile of magazines. Behavior: No agitated behavior. Patient is calm currently. He is wandering the hallways. Speech: Patient's speech is fluent and non-pressured. Mood/Affect: Mood is "alright", affect is blunted. Suicidality/Homicidality: Patient denies having any suicidal or homicidal ideation intent or plan. Perceptions: Patient endorses auditory hallucinations as noted above. Though content/process: There is evidence of delusional thought content and thought process is loosely organized. Memory and concentration: AOX3, grossly intact for the purposes of this session Judgment and insight: poor Assessment/Plan: Continue with current diagnosis. Patient continues to meet criteria for inpatient psychiatric admission for symptom stabilization and safety. Patient will be maintained on current psychotropic medication regimen: Encouraged medication compliance with Zyprexa 10 mg QHS tonight. Monitor for medication compliance and for any psychotropic medication side effects. Will continue to monitor ongoing response to treatment. Encouraged participation in milieu.
[2022-08-30] MEDS: CHOLECALCIFEROL 125 MCG (5000 IU) TABLET PO SCH (09:13)
--- NOTE | 2022-08-30 19:00 | P.PN ---
Progress Note - Text Progress Note Date: 08/30/22 Interval history: Patient was seen wandering the hallways and was directable and agreeable to speak with technical document writer. He is disheveled and holding a pile of magazines again today, but appears more engaged in assessment than yesterday. He reports auditory hallucinations are still present but are improving. His thoughts are becoming more coherent however he continues to derail into delusional thoughts of a "a person can be good or evil" but is easier to redirect. At this time, patient denies any suicidal or homicidal ideation, intent or plan. He was compliant with his Zyprexa 10 mg last night and nurse reports he slept about 4-5 hours last night which is an improvement from prior nights. Patient denies any side effects from the medications. Mental status exam: General Appearance: Patient appears to be stated age, is disheveled with poor hygiene, hair is less messy today, dressed in hospital gown, holding pile of magazines. Behavior: No agitated behavior. Patient is calm currently. He is wandering the hallways. Speech: Patient's speech is fluent and non-pressured. Mood/Affect: Mood is "ok", affect is contricted, improving. Suicidality/Homicidality: Patient denies having any suicidal or homicidal ideation intent or plan. Perceptions: Patient endorses auditory hallucinations as noted above, but reports these are better today. No visual hallucinations. Though content/process: There is evidence of delusional thought content and thought process consists of derailments into delusional thoughts. Memory and concentration: AOX3, grossly intact for the purposes of this session Judgment and insight: poor Assessment/Plan: Continue with current diagnosis. Patient continues to meet criteria for inpatient psychiatric admission for symptom stabilization and safety. Increase Zyprexa to 15 mg QHS for tonight and add Zyprexa 5 mg daily in the morning starting tomorrow morning, for psychosis. He is also on Prolixin decanoate 25 mg IM every 2 weeks from [facility] last given 08/24/22. Monitor for medication compliance and for any psychotropic medication side effe cts. Will continue to monitor ongoing response to treatment. Encouraged participation in milieu.
[2022-08-30] MEDS ORDERED: OLANZapine 7.5 MG TAB PO SCH (21:00)
[2022-08-31] MEDS: CHOLECALCIFEROL 125 MCG (5000 IU) TABLET PO SCH (07:52)
[2022-08-31] MEDS ORDERED: OLANZapine 5 MG TAB PO SCH (09:00)
--- NOTE | 2022-08-31 11:19 | P.PN ---
Progress Note - Text Progress Note Date: 08/31/22 Interval History: Patient was seen wandering the hallways earlier this morning and then found karen tomlin laying down on the couch in the [facility]. Patient was agreeable to speak to scenario writer today. She was calm and attempted to cooperate. T patient continues to endorse several bizarre delusions about being a "wizard" and also talked about the devil. He states that "I'm here to get rid of your devil". He continues to have very superficial and limited understanding of his condition and need for medications. He states that he has been taking the medications however has been refusing it sometimes. He claims that he feels tired during the day and "sleeps whenever I want". He claims that he still not sleeping at nighttime. At this time patient denies any suicidal or homical ideations, intent or plan. Patient admits to auditory, visual hallucinations however when asked more about it he continues to speak about devils and also fantasy themes. Mental Status Exam: General Appearance: Patient appears to be stated age is alert, directable, bizarre. Patient appears to have fair hygiene and grooming. Slightly disheveled Behavior: Patient is laying in bed without any agitated behavior. bizarre behvrs. Speech: Patient's speech is fluent and nonpressured. preoccupations Mood/Affect: Patient reports their mood is "fine", affect is congruent and blunted Suicidality/Homicidality: Patient denies having any homicidal ideation intent or plan. Denies any suicidal ideations intent or plan Perceptions: Patient endorses auditory and denies visual hallucinations. Though content/process: Magical thinking, other loosely formed bizarre delusions of being a wizard. fantasy beleifs and thinking. Memory and concentration: AOX3, improving attention span. Judgment and insight: chronically poor IMPRESSIONS: Schizoaffective disorder, bipolar type Plan: -Patient continues to meet criteria for inpatient psychiatric admission for symptom stabilization and safety. Patient has signed adult voluntary form and medication consent and was placed in patient's chart. -Medications: increase Zyprexa 20 mg at bedtime for psychosis. Prolixin D 25 mg IM through [facility] and last dose was given on 08/24 and will be due in q2wks on 09/07, will likely increase dose to 37.5 mg q2wks to rely less on PO meds. Added melatonin 6 mg daily at bedtime for sleep. -When necessary Ativan and Haldol for agitation/aggression. -NRT - nicotine patch -SW on board for discharge planning. Encouraged the patient to participate in milieu. Patient is refusing meds at times and has poor insight and judgment, still psychotic. Currently awaiting for court and deferral date, certs and petition was filed with courts on wednesday.
[2022-08-31] MEDS: OLANZapine 10 MG TAB PO SCH (20:19)
[2022-08-31] MEDS ORDERED: MELATONIN 3 MG TABLET PO SCH (21:00)
[2022-09-01] MEDS: CHOLECALCIFEROL 125 MCG (5000 IU) TABLET PO SCH (09:31)
[2022-09-01] MEDS ORDERED: traZODone HCL 50 MG TAB PO PRN (12:46)
--- NOTE | 2022-09-01 12:55 | P.PN ---
Progress Note - Text Progress Note Date: 09/01/22 Interval History: Patient was seen wandering the hallways earlier this morning and was agreeable to speak to underwriter in the office today. Patient appeared to be mildly more pleasant today with a underwriter. He was less focused on his bizarre delusions today. He continues to have superficial limited understanding of his condition and need for medications. He is not reporting any side effects or problems with his medications. He is not understanding why he needs the medications. We spoke about medication compliance and he asked about what the court process was like. He claims that he is not sleeping at nighttime and "I don't need sleep" and claims "I don't learn when I sleep". He claims of a fair appetite. At this time patient denies any suicidal or homical ideations, intent or plan. Patient admits to auditory, visual hallucinations however when asked more about it he continues to speak about devils and also fantasy theme, less preoccupied with this today. Mental Status Exam: General Appearance: Patient appears to be stated age is alert, directable, bizarre, improving mildly. Patient appears to have fair hygiene and grooming. Slightly disheveled Behavior: Patient is laying in bed without any agitated behavior. Improving bizarre behvrs. Speech: Patient's speech is fluent and nonpressured. preoccupations Mood/Affect: Patient reports their mood is "ok", affect is congruent and blunted Suicidality/Homicidality: Patient denies having any homicidal ideation intent or plan. Denies any suicidal ideations intent or plan Perceptions: Patient endorses auditory and denies visual hallucinations. Though content/process: Magical thinking, other loosely formed bizarre delusions of being a wizard. fantasy beleifs and thinking, less preoccupied with this today. Memory and concentration: AOX3, improving attention span. Judgment and insight: chronically poor IMPRESSIONS: Schizoaffective disorder, bipolar type Plan: -Patient continues to meet criteria for inpatient psychiatric admission for symptom stabilization and safety. Patient has signed adult voluntary form and me dication consent and was placed in patient's chart. -Medications: Zyprexa 20 mg at bedtime for psychosis. Prolixin D 25 mg IM through [facility] and last dose was given on 08/24 and will be due in q2wks on 09/07, will likely increase dose to 37.5 mg q2wks to rely less on PO meds. increase melatonin 10 mg daily at bedtime for sleep. added trazodone 50 mg qhs prn for insomnia. -When necessary Ativan and Haldol for agitation/aggression. -NRT - nicotine patch -SW on board for discharge planning. Encouraged the patient to participate in milieu. Patient is was refusing meds earlier and has poor insight and judgment, still psychotic. Currently awaiting for deferral date. Court date scheuled for 09/09
[2022-09-01] MEDS: OLANZapine 10 MG TAB PO SCH (20:19)
[2022-09-01] MEDS: MELATONIN 5 MG TABLET PO SCH (20:19)
[2022-09-02] MEDS: CHOLECALCIFEROL 125 MCG (5000 IU) TABLET PO SCH (08:36)
--- NOTE | 2022-09-02 11:30 | P.PN ---
Progress Note - Text Progress Note Date: 09/02/22 Interval History: Patient was seen wandering the hallways earlier this morning and was agreeable to speak to press writer in the office today. Patient was seen speaking with another patient on the unit today. Patient appears to have a brighter affect today and was more engaged with press writer. He continues to state that he is "" and does not need food water or medications. He refused the medications last night and continues to have very poor reality testing. She continues to have fantasy thin ervin and speaking of the devil and other loosely formed delusions. He states that he did speak with the contract attorney today and signed the deferral however did not have a clear understanding of the need to take medications and the demand process. Annual Campaign Manager spoke with patient about the need for medication compliance and patient held out his hand and states that "lock I'm I don't have a pulse don't need medications". He claims that he is not sleeping at nighttime and does not feel the need to sleep. He claims of a fair appetite. At this time patient denies any suicidal or homical ideations, intent or plan. Patient admits to auditory, visual hallucinations however when asked more about it he continues to speak about devils and also fantasy theme. Mental Status Exam: General Appearance: Patient appears to be stated age is alert, directable, bizarre. Patient appears to have fair hygiene and grooming. Slightly disheveled Behavior: Patient is laying in bed without any agitated behavior. bizarre Speech: Patient's speech is fluent and nonpressured. preoccupations Mood/Affect: Patient reports their mood is "alright", affect is congruent and blunted Suicidality/Homicidality: Patient denies having any homicidal ideation intent or plan. Denies any suicidal ideations intent or plan Perceptions: Patient endorses auditory and denies visual hallucinations. Though content/process: Magical thinking, other loosely formed bizarre delusions of being a wizard. also has delusions of being and not having a pulse. fantasy beliefs and thinking Memory and concentration: AOX3, improving attention span. Judgment and insight: chronically poor IMPRESSIONS: Schizoaffective disorder, bipolar type Plan: -Patient continues to meet criteria for inpatient psychiatric admission for symptom stabilization and safety. Patient has signed adult voluntary form and medication consent and was placed in patient's chart. -Medications: Zyprexa 20 mg at bedtime for psychosis. Prolixin D 25 mg IM through [facility] and last dose was given on 08/24 and will be due in q2wks on 09/07, will likely increase dose to 37.5 mg q2wks to rely less on PO meds. melatonin 10 mg daily at bedtime for sleep. trazodone 50 mg qhs prn for insomnia. patient refused medications last night. -When necessary Ativan and Haldol for agitation/aggression. -NRT - nicotine patch -SW on board for discharge planning. Encouraged the patient to participate in milieu. Patient refused meds last night however signed deferral with contract attorney today. will allow patient to continue taking meds and if he refuses then will proceed with demand for hearing. he contionues to have poor insight and judgment, poor reality testing, still psychotic.
[2022-09-02] MEDS: MELATONIN 5 MG TABLET PO SCH (20:14)
[2022-09-02] MEDS: OLANZapine 10 MG TAB PO SCH (20:14)
[2022-09-03 07:51] LABS: Albumin 3.9 g/dL (3.5-5.0); Bilirubin, Delta 0.2 mg/dL (0.0-0.2); Bilirubin,Unconjugated 0.3 mg/dL (0.0-1.1); Total Bilirubin 0.5 mg/dL (0.2-1.3); Total Protein 6.2 g/dL (6.3-8.2)
[2022-09-03] MEDS: CHOLECALCIFEROL 125 MCG (5000 IU) TABLET PO SCH (08:19)
--- NOTE | 2022-09-03 11:32 | P.PN ---
Progress Note - Text Progress Note Date: 09/03/22 Interval History: Patient was seen laying in bed this morning and was agreeable to speak to [facility]. Patient was waking up from sleep. He appears to be calmer and more cooperative today during the interview. He appears to be less bizarre today and less focused on delusions. He continues to state that he hears "spirits" talking to him however claims to feel less distressed by them. He also appeared to be less paranoid today during conversation. We spoke about medication compliance and patient was agreeable to receive the long-acting injection. Patient's next Prolixin D will be due on Wednesday however patient will be agreeable to take it on Wednesday instead one day earlier. He claims that he had a difficult time initiating sleep last night however did sleep about 3 or 4 hours. We spoke about adjustments to nighttime medications. He states that "I'm not afraid of the spirits anymore so I can sleep a bit better". He claims of a fair appetite. he states that he will try and go to groups today. At this time patient denies any suicidal or homical ideations, intent or plan. Patient admits to auditory, visual hallucinations however when asked more about it he continues to speak about devils and also fantasy theme, this is improving mildly Mental Status Exam: General Appearance: Patient appears to be stated age is alert, directable, bizarre. Patient appears to have fair hygiene and grooming. Slightly disheveled Behavior: Patient is laying in bed without any agitated behavior. bizarre, improving mildly Speech: Patient's speech is fluent and nonpressured. concrete. Mood/Affect: Patient reports their mood is "alright", affect is congruent and constricted Suicidality/Homicidality: Patient denies having any homicidal ideation intent or plan. Denies any suicidal ideations intent or plan Perceptions: Patient endorses auditory and denies visual hallucinations. Though content/process: Magical thinking, other loosely formed bizarre delusions, improving mildly. fantasy beliefs and thinking, less preoccupied. Memory and concentration: AOX3, improving attention span. Judgment and insight: chronically poor, improving mildly IMPRESSIONS: Schizoaffective disorder, bipolar type Plan: -Patient continues to meet criteria for inpatient psychiatric admission for symptom stabilization and safety. Patient has signed adult voluntary form and medication consent and was placed in patient's chart. -Medications: Zyprexa 20 mg at bedtime for psychosis. Prolixin D 25 mg IM throug h [facility] and last dose was given on 08/24 and will be due in q2wks on 09/06, will increase dose to 37.5 mg q2wks to rely less on PO meds. melatonin 10 mg daily at bedtime for sleep. trazodone 50 mg qhs scheduled for insomnia. patient is now taking meds. -When necessary Ativan and Haldol for agitation/aggression. -NRT - nicotine patch - on board for discharge planning. Encouraged the patient to participate in milieu. Patient signed deferral with staff attorney today. will allow patient to continue taking meds and if he refuses then will proceed with demand for hearing. patient is improving clinically since yesterday. will need to give JEFFERS on wednesday prioir to discharge. likely coordinate discharge with [facility] for patient on wednesday if he is doing better by then.
[2022-09-03] MEDS: MELATONIN 5 MG TABLET PO SCH (20:44)
[2022-09-03] MEDS: OLANZapine 10 MG TAB PO SCH (20:44)
[2022-09-03] MEDS ORDERED: traZODone HCL 50 MG TAB PO SCH (21:00)
[2022-09-03] MEDS ORDERED: traZODone HCL 100 MG TAB PO SCH (21:00)
[2022-09-04] MEDS: CHOLECALCIFEROL 125 MCG (5000 IU) TABLET PO SCH (08:40)
--- NOTE | 2022-09-04 11:41 | P.PN ---
Progress Note - Text Progress Note Date: 09/04/22 Interval History: Patient was seen at taking part in group today and was agreeable to speak to bev wang in the office today. Patient appears to be more directable and attending to cooperative during interview. He appears to be less focused on "spirits" however did state that she feels less intimidated by them. He claims that he only slept about 2-3 hours last night due to fear of them. He claims that he has been trying to go to more groups and socializes on the unit. He appears to be more reality oriented and more future oriented as well. He states that he will attempt to shower today likely in the evening time. He has been up and going to meals and groups. He is less bizarre today and less focused on his delusions. Not endorsing any paranoia at this time. he asked about the meds and their doses and also is agreeable to take the Prolixin D one day earlier on wednesday. He claims of a fair appetite. At this time patient denies any suicidal or homical ideations, intent or plan. Patient admits to auditory, visual hallucinations however when asked. denying any side effects to the meds at this time. Mental Status Exam: General Appearance: Patient appears to be stated age is alert, directable, bizarre. Patient appears to have improving hygiene and grooming. Slightly disheveled Behavior: Patient is laying in bed without any agitated behavior. bizarre, improving mildly Speech: Patient's speech is fluent and nonpressured. rabmles today Mood/Affect: Patient reports their mood is "ok", affect is congruent and constricted Suicidality/Homicidality: Patient denies having any homicidal ideation intent or plan. Denies any suicidal ideations intent or plan Perceptions: Patient endorses auditory and denies visual hallucinations. Though content/process: Magical thinking, other loosely formed bizarre delusions, improving. more reality oriented. Memory and concentration: AOX3, improving attention span. Judgment and insight: chronically poor, improving mildly IMPRESSIONS: Schizoaffective disorder, bipolar type Plan: -Patient continues to meet criteria for inpatient psychiatric admission for symptom stabilization and safety. Patient has signed adult voluntary form and medication consent and was placed in patient's chart. -Medications: Zyprexa 20 mg at bedtime for psychosis. Prolixin D 25 mg IM through [facility] and last dose was given on 08/24 and will be due in q2wks on 09/06, will increase dose to 37.5 mg q2wks to rely less on PO meds. melatonin 10 mg daily at bedtime for sleep. increase trazodone 100 mg qhs scheduled for insomnia. patient is now taking meds. -When necessary Ativan and Haldol for agitation/aggression. -NRT - nicotine patch - on board for discharge planning. Encouraged the patient to participate in milieu. Patient signed deferral with civil rights attorney. will allow patient to continue taking meds and if he refuses then will proceed with demand for hearing. patient is improving clinically gradually. will need to give JEFFERS on wednesday prior to discharge. likely coordinate discharge with [facility] for patient on wednesday if he is doing better by then.
[2022-09-04] MEDS ORDERED: fluPHENAZine DECANOATE 25 MG/ML 5ML MDV IM ONE (12:00)
[2022-09-04] MEDS: traZODone HCL 100 MG TAB PO SCH (20:53)
[2022-09-04] MEDS: MELATONIN 5 MG TABLET PO SCH (20:53)
[2022-09-04] MEDS: OLANZapine 10 MG TAB PO SCH (20:53)
[2022-09-05] MEDS: CHOLECALCIFEROL 125 MCG (5000 IU) TABLET PO SCH (09:05)
--- NOTE | 2022-09-05 11:13 | P.PN ---
Progress Note - Text Progress Note Date: 09/05/22 Interval History: Patient was agreeable to speak to comic writer bedside today. Patient endorses feel ing the presence of "dark spirits" but has been able to redirect himself last night. He states that he went to the nurse task and was trying to calm himself down. He reports better sleep last night. He claims that he has been trying to go to more groups and socializes on the unit. He appears to be more reality oriented and more future oriented as well. He has been up and going to meals and groups. He was resting in the common room earlier today with a blanket covering himself. He has good awareness with his medications/doses and is agreeable with taking medications as prescribed. He claims of a fair appetite. At this time patient denies any suicidal or homicidal ideations, intent or plan. Patient admits to auditory, visual hallucinations however when asked. Denying any side effects to the meds at this time except occasional dizziness (BP well controlled). He states that he is sometimes anxious and has had elevated heart rate at baseline prior to being on antipsychotics. He denies palpitations or other cardiac symptom. Discussed elevated heart rate was agreeable with trying Vistaril. Mental Status Exam: General Appearance: Patient appears to be stated age is alert, directable. Patient appears to have improving hygiene and grooming. Slightly disheveled Behavior: Patient is laying in bed without any agitated behavior. bizarre, improving mildly Speech: Patient's speech is fluent and nonpressured. Mood/Affect: Patient reports their mood is "ok", affect is congruent and constricted Suicidality/Homicidality: Patient denies having any homicidal ideation intent or plan. Denies any suicidal ideations intent or plan Perceptions: Patient endorses auditory and denies visual hallucinations. Though content/process: Magical thinking, other loosely formed bizarre delusion s, improving. more reality oriented and able to calm himself Memory and concentration: AOX3, improving attention span. Judgment and insight: chronically poor, improving mildly IMPRESSIONS: Schizoaffective disorder, bipolar type Plan: -Patient continues to meet criteria for inpatient psychiatric admission for symptom stabilization and safety. Patient has signed adult voluntary form and medication consent and was placed in patient's chart. -Medications: Start Vistaril 25 mg 3 times a day for anxiety and remeasure vitals Given that he is responding well to current regiemn of antipsychotics, will continue Zyprexa 20 mg at bedtime for psychosis. Prolixin D 25 mg IM through [facility] and last dose was given on 08/24 and will be due in q2wks on 09/06, will increase dose to 37.5 mg q2wks to rely less on PO meds. melatonin 10 mg daily at bedtime for sleep. Continue trazodone 100 mg qhs scheduled for insomnia. -When necessary Ativan and Haldol for agitation/aggression. -NRT - nicotine patch - on board for discharge planning. Encouraged the patient to participate in milieu. Patient signed deferral with district attorney. will allow patient to continue taking meds and if he refuses then will proceed with demand for hearing. patient is improving clinically gradually. will need to give JEFFERS on wednesday prior to discharge. likely coordinate discharge with [facility] for patient on wednesday if he is doing better by then.
[2022-09-05] MEDS: hydrOXYzine pamoate 25 MG CAP PO SCH ×2 (16:55→23:45)
[2022-09-05] MEDS: OLANZapine 10 MG TAB PO SCH (20:13)
[2022-09-05] MEDS: traZODone HCL 100 MG TAB PO SCH (20:13)
[2022-09-05] MEDS: MELATONIN 5 MG TABLET PO SCH (20:13)
[2022-09-06 06:46] VITALS: RESP 16; TEMP 99.2
[2022-09-06] MEDS: hydrOXYzine pamoate 25 MG CAP PO SCH ×2 (08:59→17:13)
[2022-09-06] MEDS: CHOLECALCIFEROL 125 MCG (5000 IU) TABLET PO SCH (08:59)
[2022-09-06] MEDS ORDERED: fluPHENAZine DECANOATE 25 MG/ML 5ML MDV IM ONE (09:00)
--- NOTE | 2022-09-06 13:50 | P.PN ---
Progress Note - Text Progress Note Date: 09/06/22 Interval History: Patient was agreeable to speak to telegraphic typewriter mechanic bedside today. Patient endorses feel ing the presence of "dark spirits" at night in his room. He says that he tries to sleep elsewhere as a result. He reports feeling frightened at night and reports having some trouble sleeping last night. He has been attending groups and socializes on the unit. However, he says he has been feeling more tired with the medications. He denies other side effects. He continues to be more reality oriented and more future oriented as well. He has good awareness with his medications/doses and is agreeable with taking medications as prescribed. He received Prolixin-D today and denies any concerns. He claims of a fair appetite. At this time patient denies any suicidal or homicidal ideations, intent or plan. Patient admits to auditory, visual hallucinations however when asked. He says that he feels his father's presence and wishes that it wouldn't bother him. In groups, he was noted to be talking about wizards. He says that he would like to be on fewer medications in the future but when the indication for medications was discussed, patient was agreeable with continuing to take them. HR improving and patient appears to be less anxious today. Mental Status Exam: General Appearance: Patient appears to be stated age is alert, directable. Patient appears to have improving hygiene and grooming. Slightly disheveled Behavior: Patient is sitting in bed without any agitated behavior. bizarre, improving mildly Speech: Patient's speech is fluent and nonpressured. Mood/Affect: Patient reports their mood is "good", affect is congruent and constricted Suicidality/Homicidality: Patient denies having any homicidal ideation intent or plan. Denies any suicidal ideations intent or plan Perceptions: Patient endorses auditory and denies visual hallucinations. Though content/process: Magical thinking. More reality oriented and able to calm himself Memory and concentration: AOX3, improving attention span. Judgment and insight: chronically poor, improving mildly IMPRESSIONS: Schizoaffective disorder, bipolar type Plan: -Patient continues to meet criteria for inpatient psychiatric admission for symptom stabilization and safety. Patient has signed adult voluntary form and medication consent and was placed in patient's chart. -Medications: Continue Vistaril 25 mg 3 times a day for anxiety Continue Zyprexa 20 mg at bedtime for psychosis. Prolixin D 37.5 mg q2wks given 09/06. melatonin 10 mg daily at bedtime for sleep. Continue trazodone 100 mg qhs scheduled for insomnia. -When necessary Ativan and Haldol for agitation/aggression. -NRT - nicotine patch -SW on board for discharge planning. Encouraged the patient to participate in milieu. Patient signed deferral with defense attorney. will allow patient to continue taking meds and if he refuses then will proceed with demand for hearing. patient is improving clinically gradually. likely coordinate discharge with [facility] for patient on wednesday if he is doing better by then.
[2022-09-06] MEDS: MELATONIN 5 MG TABLET PO SCH (20:09)
[2022-09-06] MEDS: traZODone HCL 100 MG TAB PO SCH (20:10)
[2022-09-06] MEDS: OLANZapine 10 MG TAB PO SCH (20:10)
[2022-09-07] MEDS: hydrOXYzine pamoate 25 MG CAP PO SCH ×2 (03:27→08:19)
[2022-09-07 08:18] VITALS: BP 110/71; PULSE 101
[2022-09-07] MEDS: CHOLECALCIFEROL 125 MCG (5000 IU) TABLET PO SCH (08:19)
--- NOTE | 2022-09-07 11:38 | P.DS ---
Providers Date of admission: 08/26/22 05:05 Expected date of discharge: 09/07/22 Attending physician: Giles Wisdom MD Consults: 08/26/22 05:32 Consult Physician Routine Consulting Provider: Dilma Encinas Consult Reason/Comments: For H & P for Medical Follow Up Do you want consulting provider notified?: Yes Primary care physician: Stated None - Discharge Diagnosis(es) (1) Schizoaffective disorder, bipolar type Current Visit: Yes Status: Acute Priority: High Hospital Course: Admission HPI: Admission note was completed by keno writer / runner "Patient is a 51-year-old male was admitted for psychosis, currently living with a roommate, has a history of schizoaffective disorder. Patient has a history of schizoaffective disorder and several bizarre delusions. Patient currently follows up with Dr. muller at [facility] and has been receiving Prolixin D 25 mg IM every 2 weeks, last dose was given on 08/24 Dose to be given on 09/07. Patient presented to the hospital yesterday exhibiting severe bizarre delusions and racing thoughts and altered mental status. Patient was previously admitted to the mental health unit in June 2020. Patient was admitted voluntarily to the mental health unit last night and agreeable to speak to keno writer / runner today. He is exhibiting walking the hallways carrying several magazines. Patient appeared to be pleasantly bizarre with keno writer / runner. He claims that he is a "good wizard" and states that he is surrounded by "werewolves". He claims that "we can have good worriers and this place" and claims that there will be a "[employer] and will all moved in". He claims that he feels safe on the unit and is denying any paranoia at this time. He claims that the unit is a "opposite of a haunted house". He is alert and oriented to his name only, he believes that it is 09/19/2022 and that he is in "[facility]" and not in [place]. He appears to endorse several delusions, loosely formed, bizarre however was directable during conversation. He answered some questions appropriately. When asked about hearing voices he states "I'm hearing you because I am a wizard" and denied any visual hallucinations. She denies any suicidal or homicidal ideations intent or plan. He claims that his sleep has been poor appetite as been fair. He states that "I am a person and I don't need to sleep heat or drink" however does deny depression at this time or any anxiety. Patient has poor reality testing and poor insight and judgment. In regards to substance use, patient denies any tobacco, alcohol, marijuana, or any other illicit drug use." Hospital course: Upon admission to the unit patient was directable and agreeable to commence tr eatment and signed adult voluntary form however shortly after patient was admitted to the mental health unit patient stopped taking medications and had very poor insight and judgment. The involuntary process was started with 2 clinical certificates and a petition. Patient ended up signing a deferral with the criminal defense attorney and agreeing to treatment afterwards and resumed taking his medications. Patient got along well with other patients on the unit and followed unit protocol. Patient was compliant with the medications and denied any side effects throughout hospital course. Patient was started on Zyprexa and increased to a dose of 20 mg daily at bedtime for psychosis/sleep, patient was given a dose of Prolixin D increased to a dose of 37.5 mg IM on 09/06 and will be due in every 2 weeks on 09/21. Patient was started on melatonin increased to a dose of 10 mg daily at bedtime for sleep, trazodone increased to a dose of 150 mg daily at bedtime for insomnia/mood. Patient was also started on Vistaril when necessary for anxiety. Patient spoke of his stressors and engaged in therapy both group and individual. Patient was also seen by medical team for history and physical exam. Throughout the course of the hospitalization patient gradually improved with regards to mood, anxiety, psychosis/hallucinations and delusions, sleep and returned back to their baseline level of functioning. On t he day of discharge patient denied any suicidal or homicidal ideations intent or plan denied any visual hallucinations patient claims that his auditory hallucinations have improved and they are chronic at this time and non distressing to him. Patient endorsed wanting to live for his health and future. The patient denied any access to guns or weapons. Patient denied any paranoia. Patient does not have a significant history of substance abuse and was counseled on abstaining from all substances including alcohol and marijuana. Patient was also counseled on the medications and need for regular compliance and was encouraged to follow-up with their outpatient appointment for mental health and also for primary care. Prior to discharge social science research assistant to arrange discharge and coordinated with [facility] for close follow up in the community. Mental status exam: General Appearance: Patient appears to be short in stature, pleasant, stated age is alert, directable, and cooperative. Patient is in no acute distress and has improved hygiene and grooming Behavior: Patient is calmly seated without any agitated behavior. More directable today. Pleasant. Speech: Patient's speech is fluent and nonpressured. Mood/Affect: Patient reports their mood is "good", affect is congruent and euthymic. Suicidality/Homicidality: Patient denies having any suicidal or homicidal ideation intent or plan. Perceptions: Patient denies any visual hallucinations. admitts to chronic AH which have decreased and are non distressing to him. Though content/process: There is no evidence of any delusional thought content and thought process is linear and goal-directed. Memory and concentration: AOX3, grossly intact for the purposes of this session. Can spell "WORLD" backwards correctly. Judgment and insight: chronically poor, however has improved with guarded prognosis Impression: Schizoaffective disorder bipolar type Plan: -Continue with discharge today as patient has improved and stabilized psychiatr ically and is not currently an imminent threat to himself and/or others. Patient will remain at chronically elevated risk for harm to self and/or others due to his chronically poor insight and judgment. -Continue medications: Zyprexa 20 mg daily at bedtime for psychosis/sleep, Prolixin D IM 37.5 mg was given on 09/06 and next dose will be doing every 2 weeks on 09/21. Melatonin 10 mg daily at bedtime for sleep, trazodone 150 mg daily at bedtime for sleep/mood. Vistaril 25 mg twice a day when necessary for anxiety. -Patient was counseled on the need for medication compliance and appropriate fol low-up at mental health and also primary care for medical issues. Patient verbalized understanding and agreed. -Social work to help coordinate patient's discharge today with [facility]. Social work also to arrange for patients follow up appointments with [facility] for psychiatric care along with follow up with primary care provider. -Patient counseled on abstaining from recreational drugs and marijuana and a lcohol. Was informed/educated on the adverse effects on their physical and mental health. Patient verbally agreed and understood. -Patient was instructed to return to the hospital or seek immediate medical care if their psychiatric or medical symptoms do worsen or reoccur. Allergies Allergy/AdvReac Type Severity Reaction Status Date / Time yeast, dried Allergy Unknown Verified 08/26/22 05:37 Laboratory Results WBC 10.2 k/uL (3.8-10.6) 08/27/22 06:55 RBC 5.03 m/uL (4.30-5.90) 08/27/22 06:55 Hgb 14.9 gm/dL (13.0-17.5) 08/27/22 06:55 Hct 43.5 % (39.0-53.0) 08/27/22 06:55 MCV 86.5 fL (80.0-100.0) 08/27/22 06:55 MCH 29.7 pg (25.0-35.0) 08/27/22 06:55 MCHC 34.4 g/dL (31.0-37.0) 08/27/22 06:55 RDW 12.4 % (11.5-15.5) 08/27/22 06:55 Plt Count 222 k/uL (150-450) 08/27/22 06:55 MPV 7.3 08/27/22 06:55 Neutrophils % 80 % 08/27/22 06:55 Lymphocytes % 8 % 08/27/22 06:55 Monocytes % 8 % 08/27/22 06:55 Eosinophils % 0 % 08/27/22 06:55 Basophils % 0 % 08/27/22 06:55 Neutrophils # 8.2 k/uL (1.3-7.7) H 08/27/22 06:55 Lymphocytes # 0.9 k/uL (1.0-4.8) L 08/27/22 06:55 Monocytes # 0.8 k/uL (0-1.0) 08/27/22 06:55 Eosinophils # 0.0 k/uL (0-0.7) 08/27/22 06:55 Basophils # 0.0 k/uL (0-0.2) 08/27/22 06:55 Sodium 143 mmol/L (137-145) 08/27/22 06:55 Potassium 4.1 mmol/L (3.5-5.1) 08/27/22 06:55 Chloride 106 mmol/L (98-107) 08/27/22 06:55 Carbon Dioxide 28 mmol/L (22-30) 08/27/22 06:55 Anion Gap 9 mmol/L 08/27/22 06:55 BUN 26 mg/dL (9-20) H 08/27/22 06:55 Creatinine 0.89 mg/dL (0.66-1.25) 08/27/22 06:55 Est GFR (CKD-EPI)AfAm >90 (>60 ml/min/1.73 sqM) 08/27/22 06:55 Est GFR (CKD-EPI)NonAf >90 (>60 ml/min/1.73 sqM) 08/27/22 06:55 Glucose 103 mg/dL (74-99) H 08/27/22 06:[address] Glu mg/dL 113 08/27/22 06:55 Hemoglobin A1c 5.6 % (0.0-6.0) 08/27/22 06:55 Calcium 9.2 mg/dL (8.4-10.2) 08/27/22 06:55 Total Bilirubin 0.5 mg/dL (0.2-1.3) 09/03/22 07:17 Conjugated Bilirubin 0.0 mg/dL (0.0-0.3) 09/03/22 07:17 Unconjugated Bilirubin 0.3 mg/dL (0.0-1.1) 09/03/22 07:17 Delta Bilirubin 0.2 mg/dL (0.0-0.2) 09/03/22 07:17 AST 40 U/L (17-59) 09/03/22 07:17 ALT 52 U/L (4-49) H 09/03/22 07:17 Alkaline Phosphatase 63 U/L (38-126) 09/03/22 07:17 Total Protein 6.2 g/dL (6.3-8.2) L 09/03/22 07:17 Albumin 3.9 g/dL (3.5-5.0) 09/03/22 07:17 Triglycerides 43.20 mg/dL (0.00-149.00) 08/27/22 06:55 Cholesterol 191.00 mg/dL (0.00-200.00) 08/27/22 06:55 LDL Cholesterol, Calc 102.8 mg/dL (0.0-131.0) 08/27/22 06:55 VLDL Cholesterol, Calc 8.64 mg/dL (5.00-40.00) 08/27/22 06:55 HDL Cholesterol 79.60 mg/dL (40.00-60.00) H 08/27/22 06:55 Cholesterol/HDL Ratio 2.40 Ratio 08/27/22 06:55 TSH 2.400 mIU/L (0.465-4.680) 08/27/22 06:55 Coronavirus (PCR) Not Detected (Not Detectd) 08/28/22 12:59 Vital Signs Temp 99.2 F 09/06/22 06:30 Pulse 101 H 09/07/22 08:18 Resp 16 09/06/22 06:30 BP 110/71 09/07/22 08:18 Pulse Ox 98 09/05/22 06:08 FiO2 Patient Condition at Discharge: Stable Plan - Discharge Summary Discharge Rx Participant: Yes New Discharge Prescriptions: New Melatonin 10 mg PO HS 30 Days tab hydrOXYzine pamoate [Vistaril] 25 mg PO BID PRN 14 Days cap PRN Reason: Anxiety OLANZapine [ZyPREXA] 20 mg PO HS 30 Days tab fluPHENAZine decanoate [Prolixin Decanoate] 37.5 mg IM [id number] #1 each traZODone HCL 150 mg PO HS 30 Days tablet Acetaminophen Tab [Tylenol] 650 mg PO Q4HR PRN tab PRN Reason: Pain/Discomfort Cholecalciferol [Vitamin D3 (125 Mcg = 5000 Iu)] 125 mcg PO DAILY 30 Days tab Discontinued Cholecalciferol [Vitamin D3 (25 Mcg = 1000 Iu)] 5,000 unit PO DAILY OLANZapine [ZyPREXA] 10 mg PO DAILY 30 Days tab OLANZapine [ZyPREXA] 20 mg PO HS 30 Days tab fluPHENAZine decanoate [Prolixin Decanoate] 25 mg IM Q14D #1 ml predniSONE 50 mg PO QAM 5 Days #5 tablet No Action Albuterol Inhaler [Ventolin Hfa Inhaler] 1 puff INHALATION QID PRN #8 gm PRN Reason: Cough Discharge Medication List Albuterol Inhaler [Ventolin Hfa Inhaler] 1 puff INHALATION QID PRN #8 gm 05/28/22 [Rx] Acetaminophen Tab [Tylenol] 650 mg PO Q4HR PRN tab 09/07/22 [Rx] Cholecalciferol [Vitamin D3 (125 Mcg = 5000 Iu)] 125 mcg PO DAILY 30 Days tab 09/07/22 [Rx] Melatonin 10 mg PO HS 30 Days tab 09/07/22 [Rx] OLANZapine [ZyPREXA] 20 mg PO HS 30 Days tab 09/07/22 [Rx] fluPHENAZine decanoate [Prolixin Decanoate] 37.5 mg IM [id number] #1 each 09/07/22 [Rx] hydrOXYzine pamoate [Vistaril] 25 mg PO BID PRN 14 Days cap 09/07/22 [Rx] traZODone HCL 150 mg PO HS 30 Days tablet 09/07/22 [Rx] Follow up Appointment(s)/Referral(s): [facility] [Outside] - 09/09/22 10:00 am (09-09-22 at 10:00 with Bindu Velázquez 09/28/2022 @ 08:[address] Muller) [facility] Patient Instructions/Handouts: Schizophrenia (DC) Activity/Diet/Wound Care/Special Instructions: Activity and diet as tolerated. Avoid the use of street drugs and alcohol. Take all medications as prescribed. When you are in need of refills on your medications please contact your medical provider and/or outpatient psychiatrist to have this done. Please go to scheduled outpatient appointment for aftercare treatment. If symptoms return or become worse, call the crisis line at and/or go to the nearest emergency room for evaluation Discharge Disposition: HOME SELF-CARE
== END 2022-09-07 14:25 | disposition home or self-care (01) | DRG 885 ==
LOC: EC 23:02 → 3MHU 08-26 05:05 → UNDODISIN 08-28 14:10 → 3MHU 08-29 03:33
PROVIDERS: ADMIT Psychiatry & Neurology Psychiatry; ATTEND Psychiatry & Neurology Psychiatry
DX: F25.0 Schizoaffective disorder, bipolar type (principal); F41.9 Anxiety disorder, unspecified; G47.00 Insomnia, unspecified; Z79.899 Other long term (current) drug therapy; Z91.14 Patient's other noncompliance with medication regimen; Z20.822 Contact with and (suspected) exposure to COVID-19
CPT/HCPCS: 80053; 80061; 80076; 82075; 82248; 83036; 84443; 85025; 87635; 99285

== ENCOUNTER 2023-10-23 18:23 | Emergency (ER) | payer MEDICARE, OTHER ==
[2023-10-23 18:37] VITALS: BP 133/89; PULSE 58; RESP 16; TEMP 98
[2023-10-23 19:26] LABS: Appearance,Urine Clear (Clear); Bilirubin,Urine Negative (Negative); Blood,Urine Negative (Negative); Color,Urine Colorless; Glucose,Urine (UA) Negative (Negative); Ketones,Urine Negative (Negative); Leukocyte Esterase,Urine Negative (Negative); Nitrite,Urine Negative (Negative); PH, Urine 6.5 (5.0-8.0); Protein,Urine Negative (Negative); Specific Gravity,Urine 1.003 (1.001-1.035); Urobilinogen,Urine <2.0 mg/dL (<2.0)
--- NOTE | 2023-10-23 19:52 | ED ---
General Adult HPI - General Chief complaint: Psychiatric Symptoms Stated complaint: mental health Time Seen by Provider: 10/23/23 18:55 Source: patient, RN notes reviewed Mode of arrival: ambulatory Limitations: no limitations - History of Present Illness Initial comments: 52-year-old male presents to the emergency department for evaluation of mental health issues. Patient states that since 1992 he has been using dog feces while masturbating. He states that this is recently become a problem at his home as his roommate is bothered by this. His roommate states that this is causing an odor throughout their apartment. - Related Data Home Medications Medication Instructions Recorded Confirmed OLANZapine [ZyPREXA] 30 mg PO HS 10/23/23 10/23/23 Previous Rx's Medication Instructions Recorded fluPHENAZine decanoate [Prolixin 37.5 mg IM [id number] #1 each 09/07/22 Decanoate] Allergies Allergy/AdvReac Type Severity Reaction Status Date / Time yeast, dried Allergy Unknown Verified 10/23/23 19:54 Review of Systems ROS Statement: Those systems with pertinent positive or pertinent negative responses have been documented in the HPI. ROS Other: All systems not noted in ROS Statement are negative. Past Medical History Past Medical History: No Reported History History of Any Multi-Drug Resistant Organisms: None Reported Past Surgical History: No Surgical Hx Reported Additional Past Surgical History / Comment(s): ORAL SURGERY Past Psychological History: Schizoaffective Disorder, Schizophrenia Smoking Status: Never smoker Past Alcohol Use History: None Reported Past Drug Use History: None Reported - Past Family History Father Family Medical History: Unable to Obtain Mother Family Medical History: Unable to Obtain General Exam Limitations: no limitations General appearance: alert, in no apparent distress, other (Disheveled) Head exam: Present: atraumatic, normocephalic, normal inspection Eye exam: Present: normal appearance, PERRL, EOMI. Absent: scleral icterus, conjunctival injection, periorbital swelling ENT exam: Present: normal exam, mucous membranes moist Neck exam: Present: normal inspection. Absent: tenderness, meningismus, lymphadenopathy Respiratory exam: Present: normal lung sounds bilaterally. Absent: respiratory distress, wheezes, rales, rhonchi, stridor Cardiovascular Exam: Present: regular rate, normal rhythm, normal heart sounds. Absent: systolic murmur, diastolic murmur, rubs, gallop, clicks Extremities exam: Present: normal inspection, full ROM, normal capillary refill. Absent: tenderness, pedal edema, joint swelling, calf tenderness Back exam: Present: normal inspection Neurological exam: Present: alert, oriented X3 Psychiatric exam: Present: normal affect, normal mood Skin exam: Present: warm, dry, intact, normal color. Absent: rash Course Vital Signs 10/23/23 18:24 Temperature 98 F Pulse Rate 58 L Respiratory 16 Rate Blood Pressure 133/89 O2 Sat by Pulse 99 Oximetry Medical Decision Making - Medical Decision Making Was pt. sent in by a medical professional or institution (, PA, TISSUE COORDINATOR, urgent care, hospital, or senior living...) When possible be specific @ -No Did you speak to anyone other than the patient for history (EMS, parent, family, police, friend...)? What history was obtained from this source @ -No Did you review nursing and triage notes (agree or disagree)? Why? @ -I reviewed and agree with nursing and triage notes Were old charts reviewed (outside hosp., previous admission, EMS record, old EKG, old radiological studies, urgent care reports/EKG's, senior living records)? Report findings @ -No old charts were reviewed Differential Diagnosis (chest pain, altered mental status, abdominal pain women, abdominal pain men, vaginal bleeding, weakness, fever, dyspnea, syncope, headache, dizziness, GI bleed, back pain, seizure, CVA, palpatations, mental health, musculoskeletal)? @ -Differential Mental Health Depression, anxiety, bipolar, psychosis, schizophrenia, borderline personality, situational depression, adjustment disorder, behavioral disorder, brain tumor, malingering, substance abuse, encephalopathy, medication reaction, dementia, hypothyroidism, degenerative neurologic disorder, lupus.... This is not meant to be all-inclusive list EKG interpreted by me (3pts min.). @ -None X-rays interpreted by me (1pt min.). @ -None done CT interpreted by me (1pt min.). @ -None done U/S interpreted by me (1pt. min.). @ -None done What testing was considered but not performed or refused? (CT, X-rays, U/S, labs)? Why? @ -None What meds were considered but not given or refused? Why? @ -None Did you discuss the management of the patient with other professionals (professionals i.e. , PA, TISSUE COORDINATOR, lab, RT, psych nurse, adoption social worker, chancery clerk, teacher, gift officer, immigration case manager)? Give summary @ -Management discussed with EPS who is recommending outpatient management of the patient. From a psychological standpoint patient is stable Was smoking cessation discussed for >3mins.? @ -No Was critical care preformed (if so, how long)? @ -No Were there social determinants of health that impacted care today? How? (Homelessness, low income, unemployed, alcoholism, drug addiction, transportation, low edu. Level, literacy, decrease access to med. care, residential, rehab)? @ -No Was there de-escalation of care discussed even if they declined (Discuss DNR or withdrawal of care, Hospice)? DNR status @ -No What co-morbidities impacted this encounter? (DM, HTN, Smoking, COPD, CAD, Cancer, CVA, ARF, Chemo, Hep., AIDS, mental health diagnosis, sleep apnea, morbid obesity)? @ -None Was patient admitted / discharged? Hospital course, mention meds given and route, prescriptions, significant lab abnormalities, going to OR and other pertinent info. @ -Discharge. Patient presented to the emergency department for psychiatric evaluation. Patient reports that his roommate has been getting upset with him because he is masturbating with dog feces and would like him to be evaluated. Patient denies suicidal or homicidal ideation at this time. He does report a history of schizophrenia for which he is taking his medication and follows closely with his psychiatrist for. Patient was evaluated by EPS. Patient stable for discharge. Patient provided information for infection control. Undiagnosed new problem with uncertain prognosis? @ -No Drug Therapy requiring intensive monitoring for toxicity (Heparin, Nitro, Insulin, Cardizem)? @ -No Were any procedures done? @ -No Diagnosis/symptom? @ -Sexual fetish Acute, or Chronic, or Acute on Chronic? @ -acute Uncomplicated (without systemic symptoms) or Complicated (systemic symptoms)? @ -uncomplicated Side effects of treatment? @ -No Exacerbation, Progression, or Severe Exacerbation? @ -No Poses a threat to life or bodily function? How? (Chest pain, [place], [place], pneumonia, PE, COPD, DKA, ARF, appy, cholecystitis, CVA, Diverticulitis, Homicidal, Suicidal, threat to staff... and all critical care pts) @ -No - Lab Data Lab Results 10/23/23 Range/Units 19:08 Urine Color Colorless Urine Appearance Clear (Clear) Urine pH 6.5 (5.0-8.0) Ur Specific [place] 1.003 (1.001-1.035) Urine Protein Negative (Negative) Urine Glucose (UA) Negative (Negative) Urine Ketones Negative (Negative) Urine Blood Negative (Negative) Urine Nitrite Negative (Negative) Urine Bilirubin Negative (Negative) Urine Urobilinogen <2.0 (<2.0) mg/dL Ur Leukocyte Esterase Negative (Negative) Disposition Clinical Impression: Sexual dysfunction not due to substance or known physiol condition, Fetishism Disposition: HOME SELF-CARE Condition: Stable Instructions (If sedation given, give patient instructions): Salmonella Infection (ED) Is patient prescribed a controlled substance at d/c from ED?: No Referrals: None,Stated [Primary Care Provider] - 1-2 days
== END 2023-10-23 22:45 | disposition home or self-care (01) ==
LOC: EC 18:23
DX: F52.8 Other sexual dysfunction not due to a substance or known physiological condition (principal); F65.0 Fetishism; Z91.018 Allergy to other foods
CPT/HCPCS: 81003; 82075; 99285